=== PATIENT | male | born 1965 ===

== ENCOUNTER 2017-05-15 09:31 | Emergency (ER) | payer MEDICARE, OTHER ==
[2017-05-15 09:31] VITALS: BMI 33.4
[2017-05-15 09:44] VITALS: TEMP 97.9
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
[2017-05-15 12:44] VITALS: BP 122/79; PULSE 90; RESP 18; O2SAT 98
--- NOTE | 2017-05-17 07:09 | CARD ---
APPROVED REPORT EKG Measurement Heart [id number] <Conclusion> Normal sinus rhythm Moderate voltage criteria for LVH, may be normal variant Nonspecific T wave abnormality Abnormal ECG
== END 2017-05-15 12:44 | disposition home or self-care (01) ==
LOC: C.ER 09:31
DX: G89.21 Chronic pain due to trauma (principal)
CPT/HCPCS: 96372; 99285; J1885

== ENCOUNTER 2017-09-30 15:56 | Emergency (ER) | payer MEDICARE ==
[2017-09-30 15:57] VITALS: BMI 33.4
[2017-09-30 19:09] VITALS: BP 103/68; PULSE 64; RESP 18; TEMP 97.4; O2SAT 100
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
--- NOTE | 2017-10-01 09:10 | RAD ---
PROCEDURE: Left Knee Radiographs. HISTORY: Pain. COMPARISON: 08/27/2015 FINDINGS: BONES: Status post total knee replacement. Anatomical alignment present. Femoral and tibial components cemented no gross hardware failure suggested. . No fracture. The current replacement is different from the prior knee replacement. The current study shows interval innumerable punctate metallic densities consistent with trauma JOINTS: Knee replacement JOINT EFFUSION: suprapatellar joint effusion chronicity unknown OTHER FINDINGS: Innumerable metallic punctate densities anterior posterior soft tissue consistent with prior trauma IMPRESSION: Status post total knee replacement/revision compared to 2014 with interval innumerable metallic punctate densities consistent with interval trauma No fracture or hardware failure suggested Suprapatellar joint effusion-chronicity unknown.
--- NOTE | 2017-10-01 09:12 | RAD ---
PROCEDURE: Right Ankle Radiographs. HISTORY: fall COMPARISON: None FINDINGS: BONES: Normal. No fracture. JOINTS: Normal. No osteoarthritis. Ankle mortise maintained. Talar dome intact SOFT TISSUES: Normal. OTHER FINDINGS: None. IMPRESSION: Normal right ankle radiographs.
--- NOTE | 2017-10-01 09:14 | RAD ---
PROCEDURE: Right Foot Radiographs. HISTORY: fall COMPARISON: None. FINDINGS: BONES: Normal. No fracture. JOINTS: Minimal 1st metatarsal-phalangeal joint space narrowing. Minimal 1st metatarsal head osseous squaring. Sissoring of the 5th toe over the 4th. SOFT TISSUES: Normal. OTHER FINDINGS: None. IMPRESSION: No fracture or dislocation.
== END 2017-09-30 20:17 | disposition home or self-care (01) ==
LOC: C.ER 15:56
DX: S93.401A Sprain of unspecified ligament of right ankle, initial encounter (principal); S83.92XA Sprain of unspecified site of left knee, initial encounter; W18.30XA Fall on same level, unspecified, initial encounter

== ENCOUNTER 2018-03-17 15:01 | Emergency (ER) | payer MEDICARE ==
[2018-03-17 15:02] VITALS: BMI 33.4
[2018-03-17 15:52] VITALS: RESP 18; O2SAT 100
[2018-03-17 17:55] LABS: HEMOGLOBIN 14.5 g/dL (12.0-18.0); MEAN CELL VOLUME 97.6 fL (80.0-94.0); MEAN CORPUSCULAR HEMOGLOBIN 32.6 pg (27.0-31.0); MEAN CORPUSCULAR HGB CONC 33.4 g/dL (33.0-37.0); MEAN PLATELET VOLUME 8.6 fL (7.2-11.7); RBC 4.44 Mil/uL (4.40-5.90); RED CELL DISTRIBUTION WIDTH 13.5 % (11.5-14.5); WHITE BLOOD COUNT 8.6 K/uL (4.8-10.8)
[2018-03-17 18:13] LABS: ALB/GLOB RATIO 1.3 (1.0-2.1); ALBUMIN 4.2 g/dL (3.5-5.0); ALT/SGPT 25 U/L (21-72); AST/SGOT 28 U/L (17-59); BLOOD UREA NITROGEN 17 mg/dL (9-20); CALCIUM 9.4 mg/dl (8.6-10.4); GFR AFRICAN-AMERICAN > 60; GFR NON-AFRICAN AMERICAN > 60
--- NOTE | 2018-03-17 18:38 | C.PDOC ---
Time Seen by Provider: 03/17/18 16:00 Chief Complaint (Nursing): Dizziness/Lightheaded Past Medical History Vital Signs: Last Vital Signs Temp 98.2 F 03/17/18 15:48 Pulse 73 03/17/18 15:48 Resp 18 03/17/18 15:48 BP 147/92 H 03/17/18 15:48 Pulse Ox 100 03/17/18 15:48 - Medical History PMH: Anxiety, Asthma, Back Problems, Depression, Diabetes, Gastritis, Gastrointestinal Ulcer, HTN, Hypercholesterolemia, Hyperlipidemia, Paranoia, Post Traumatic Stress Disorder Surgical History: Appendectomy - [facility] Procedures APPLICATION OF SPLINT (08/31/13) OTHER BRONCHOSCOPY (10/20/99) Family History: States: Unknown Family Hx - Social History Hx Tobacco Use: Yes Hx Alcohol Use: No Hx Substance Use: No - Immunization History Hx Tetanus Toxoid Vaccination: No Hx Influenza Vaccination: No Hx Pneumococcal Vaccination: No ED Course And Treatment - Laboratory Results Result Diagrams: 03/17/18 17:50 03/17/18 17:50 O2 Sat by Pulse Oximetry: 100 Disposition Doctor Will See Patient In The: Office Counseled Patient/Family Regarding: Diagnosis, Need For Followup, Smoking Cessation - Disposition Disposition: HOME/ ROUTINE Disposition Time: 18:38 Condition: GOOD Additional Instructions: return if symptoms return or worsen - Clinical Impression Clinical Impression: Dizziness, Vomiting, Chronic pain
[2018-03-17 18:56] VITALS: BP 140/91; PULSE 71; TEMP 98.1
--- NOTE | 2018-03-18 14:14 | CP.PCM.CON ---
Past Patient History - Infectious Disease Hx of Infectious Diseases: None - Past Medical History & Family History Past Medical History?: Yes - Past Social History Smoking Status: Light Smoker < 10 Cigarettes Daily - CARDIAC Hx Hypercholesterolemia: Yes Hx Hypertension: Yes - PULMONARY Hx Asthma: Yes - HEENT Hx HEENT Problems: Yes Hx Glaucoma: Yes - ENDOCRINE/METABOLIC Hx Endocrine Disorders: Yes Hx Diabetes Mellitus Type 2: Yes - MUSCULOSKELETAL/RHEUMATOLOGICAL Hx Musculoskeletal Disorders: Yes - GASTROINTESTINAL Hx Gastritis: Yes - GENITOURINARY/GYNECOLOGICAL Hx Genitourinary Disorders: Yes Hx Prostate Problems: Yes (BPH) Other/Comment: FREQUENCY - PSYCHIATRIC Hx Anxiety: Yes Hx Depression: Yes Hx Paranoia: Yes Hx Post Traumatic Stress Disorder: Yes Hx Substance Use: No - SURGICAL HISTORY Hx Appendectomy: Yes - ANESTHESIA Hx Anesthesia: Yes Hx Anesthesia Reactions: No Meds Allergies/Adverse Reactions: Allergies Allergy/AdvReac Type Severity Reaction Status Date / Time carbamazepine Allergy Severe RASH Verified 03/17/18 15:42 Results - Vital Signs Recent Vital Signs: Last Vital Signs Temp 98.1 F 03/17/18 18:54 Pulse 71 03/17/18 18:54 Resp 18 03/17/18 18:54 BP 140/91 H 03/17/18 18:54 Pulse Ox 100 03/17/18 18:54 - Labs Result Diagrams: 03/17/18 17:50 03/17/18 17:50 Labs: Laboratory Results - last 24 hr 03/17/18 03/17/18 03/17/18 15:47 17:50 17:50 WBC 8.6 RBC 4.44 Hgb 14.5 Hct 43.3 MCV 97.6 H D MCH 32.6 H MCHC 33.4 RDW 13.5 Plt Count 252 MPV 8.6 Sodium 144 Potassium 4.2 Chloride 103 Carbon Dioxide 28 Anion Gap 16 BUN 17 Creatinine 0.7 L Est GFR ( Amer) > 60 Est GFR (Non-Af Amer) > 60 POC Glucose (mg/dL) 88 Random Glucose 76 Calcium 9.4 Total Bilirubin 0.4 AST 28 ALT 25 Alkaline Phosphatase 51 Total Protein 7.5 Albumin 4.2 Globulin 3.3 Albumin/Globulin Ratio 1.3
== END 2018-03-17 18:59 | disposition home or self-care (01) ==
LOC: C.ER 15:01
DX: G89.29 Other chronic pain (principal); R11.10 Vomiting, unspecified; R42 Dizziness and giddiness; F17.210 Nicotine dependence, cigarettes, uncomplicated; I10 Essential (primary) hypertension; E11.9 Type 2 diabetes mellitus without complications; E78.00 Pure hypercholesterolemia, unspecified

== ENCOUNTER 2018-07-02 15:21 | Emergency (ER) | payer MEDICARE, OTHER ==
[2018-07-02 15:21] VITALS: BMI 25.0
[2018-07-02 15:43] VITALS: BP 136/90; PULSE 88; RESP 18; O2SAT 98
[2018-07-02] MEDS ORDERED: Sodium Chloride 0.9% 1,000 ML IV ONE (15:54)
[2018-07-02] MEDS ORDERED: Sodium Chloride 0.9% 1,000 ML ONE (16:01)
--- NOTE | 2018-07-02 16:01 | C.PDOC ---
History Of Present Illness 53 y/o male presents to ED with c/o LLQ abdominal pain associated with occasional dizziness "for awhile". Patient states he has chronic pain and uses fentanyl patch. Patient denies nausea, vomiting, headache, diarrhea or any other complaints at this time. Time Seen by Provider: 07/02/18 15:50 Chief Complaint (Nursing): Abdominal Pain History Per: Patient History/Exam Limitations: no limitations Onset/Duration Of Symptoms: Days Current Symptoms Are (Timing): Still Present Location Of Pain/Discomfort: LLQ Past Medical History Reviewed: Historical Data, Nursing Documentation, Vital Signs Vital Signs: Last Vital Signs Temp 98.5 F 07/02/18 15:39 Pulse 88 07/02/18 15:39 Resp 18 07/02/18 15:39 BP 136/90 07/02/18 15:39 Pulse Ox 98 07/02/18 18:19 - Medical History PMH: Anxiety, Asthma, Back Problems, Depression, Diabetes, Gastritis, Gastrointestinal Ulcer, HTN, Hypercholesterolemia, Hyperlipidemia, Paranoia, Post Traumatic Stress Disorder Surgical History: Appendectomy - [facility] Procedures APPLICATION OF SPLINT (08/31/13) OTHER BRONCHOSCOPY (10/20/99) Family History: States: No Known Family Hx - Social History Hx Tobacco Use: Yes Hx Alcohol Use: No Hx Substance Use: No - Immunization History Hx Tetanus Toxoid Vaccination: No Hx Influenza Vaccination: No Hx Pneumococcal Vaccination: No Review Of Systems Constitutional: Negative for: Fever, Chills Gastrointestinal: Positive for: Abdominal Pain. Negative for: Nausea, Vomiting , Diarrhea Skin: Negative for: Rash Physical Exam - Physical Exam Appears: Non-toxic, No Acute Distress Skin: Warm, Dry, No Rash Head: Atraumatic, Normacephalic Eye(s): bilateral: Normal Inspection Oral Mucosa: Moist Cardiovascular: Rhythm Regular Respiratory: Normal Breath Sounds, No Rales, No Rhonchi, No Wheezing Gastrointestinal/Abdominal: Soft, Tenderness (LLQ), No Guarding, No Rebound Back: No CVA Tenderness Extremity: Normal ROM, Capillary Refill (<2 seconds) Neurological/Psych: Oriented x3, Normal Speech, Normal Cognition ED Course And Treatment - Laboratory Results Result Diagrams: 07/02/18 16:14 07/02/18 16:14 Lab Interpretation: Normal O2 Sat by Pulse Oximetry: 98 (RA) Pulse Ox Interpretation: Normal - CT Scan/US No standard instances Other Rad Studies (CT/US): Read By Radiologist, Radiology Report Reviewed CT/US Interpretation: FINDINGS: There is limited evaluation of the solid organs without the administration of IV contrast. LOWER THORAX: No visible consolidation, pleural effusion, or pneumothorax. LIVER: Unremarkable unenhanced appearance. GALLBLADDER AND BILE DUCTS: Unremarkable unenhanced appearance. PANCREAS: Unremarkable unenhanced appearance. SPLEEN: Unremarkable unenhanced appearance. ADRENALS: Unremarkable unenhanced appearance. KIDNEYS AND URETERS: No hydronephrosis or obstructing renal calculus. BLADDER: Evidence of posterior right bladder diverticulum. REPRODUCTIVE: Enlarged prostate gland containing calcifications. APPENDIX: The appendix is not identified. No secondary signs of acute appendicitis. BOWEL : The stomach is nondistended. Lack of oral contrast limits evaluation for bowel pathology. The bowel loops appear within normal limits of caliber without evidence of intestinal obstruction. Moderate diffuse constipation. PERITONEUM: No significant free fluid. No definite free air. LYMPH NODES: No bulky lymphadenopathy identified. VASCULATURE: No aortic aneurysm. BONES: Degenerative changes. Patchy sclerosis involving bilateral femoral heads. Grade 1 anterolisthesis of L4 on L5. OTHER FINDINGS: None. IMPRESSION: Enlarged prostate gland containing calcifications ; recommend correlation with PSA. Moderate diffuse constipation. Posterior right urinary bladder diverticulum. Progress Note: Blood work, UA ordered. Toradol, Zofran and IV fluids administered. On re-evaluation abdomen soft non-tender, in no distress Reassessment Condition: Improved Disposition Counseled Patient/Family Regarding: Studies Performed, Diagnosis, Need For Followup, Rx Given - Disposition Referrals: [facility] [Outside] [facility] [Outside] Disposition: HOME/ ROUTINE Disposition Time: 18:20 Condition: STABLE Prescriptions: Polyethylene Glycol 3350 [Miralax] 17 gm PO DAILY PRN #20 packet PRN Reason: Constipation Instructions: Acute Abdomen (Belly Pain) Forms: [email or web address] (Occitan) - POA Present On Arrival: None - Clinical Impression Clinical Impression: Abdominal pain - PA / GRAPE CUTTER / Resident Statement MD/DO has reviewed & agrees with the documentation as recorded. - Scribe Statement The provider has reviewed the documentation as recorded by the Radha Cadet All medical record entries made by the Vishalibadele were at my direction and personally dictated by me. I have reviewed the chart and agree that the record accurately reflects my personal performance of the history, physical exam, medical decision making, and the department course for this patient. I have also personally directed, reviewed, and agree with the discharge instructions and disposition.
[2018-07-02 16:19] LABS: BASO % 0.8 % (0.0-2.0); EOS # 0.1 K/uL (0.0-0.7); EOS % 1.5 % (0.0-4.0); HEMOGLOBIN 14.1 g/dL (12.0-18.0); LYMPH % 31.7 % (20.0-40.0); MEAN CELL VOLUME 94.9 fL (80.0-94.0); MEAN CORPUSCULAR HEMOGLOBIN 32.6 pg (27.0-31.0); MEAN CORPUSCULAR HGB CONC 34.3 g/dL (33.0-37.0); MONO # 0.4 K/uL (0.0-0.8); MONO % 6.1 % (0.0-10.0); NEUT # 3.8 K/uL (1.8-7.0); NEUT % 59.9 % (50.0-75.0); NRBC % 0.1 % (0.0-2.0); RBC 4.34 Mil/uL (4.40-5.90); WHITE BLOOD COUNT 6.3 K/uL (4.8-10.8)
[2018-07-02 16:33] LABS: ALB/GLOB RATIO 1.5 (1.0-2.1); ALBUMIN 3.9 g/dL (3.5-5.0); ALT/SGPT 31 U/L (21-72); AST/SGOT 20 U/L (17-59); BLOOD UREA NITROGEN 15 mg/dL (9-20); CALCIUM 9.5 mg/dl (8.6-10.4); GFR NON-AFRICAN AMERICAN > 60; LIPASE 69 U/L (23-300)
[2018-07-02 16:54] LABS: URINE BILIRUBIN NEGATIVE (NEGATIVE); URINE BLOOD NEGATIVE (NEGATIVE); URINE CLARITY Clear (Clear); URINE GLUCOSE (UA) NORMAL (Normal); URINE LEUKOCYTE ESTERASE NEG Leu/uL (Negative); URINE PROTEIN NEGATIVE (NEGATIVE); URINE UROBILINOGEN NORMAL mg/dL (0.2-1.0)
[2018-07-02 17:01] LABS: URINE COLOR YELLOW (YELLOW)
--- NOTE | 2018-07-02 18:17 | CT ---
PROCEDURE: CT Abdomen and Pelvis without Oral or IV contrast. HISTORY: Pain COMPARISON: CT abdomen and pelvis without IV contrast performed 03/24/18 TECHNIQUE: Contiguous axial images of the abdomen and pelvis. No oral or IV contrast administered. Coronal and Sagittal reformats generated and reviewed. Radiation dose: Total exam DLP = 369.63 mGy-cm. This CT exam was performed using one or more of the following dose reduction techniques: Automated exposure control, adjustment of the mA and/or kV according to patient size, and/or use of iterative reconstruction technique. FINDINGS: There is limited evaluation of the solid organs without the administration of IV contrast. LOWER THORAX: No visible consolidation, pleural effusion, or pneumothorax. LIVER: Unremarkable unenhanced appearance. GALLBLADDER AND BILE DUCTS: Unremarkable unenhanced appearance. PANCREAS: Unremarkable unenhanced appearance. SPLEEN: Unremarkable unenhanced appearance. ADRENALS: Unremarkable unenhanced appearance. KIDNEYS AND URETERS: No hydronephrosis or obstructing renal calculus. BLADDER: Evidence of posterior right bladder diverticulum. REPRODUCTIVE: Enlarged prostate gland containing calcifications. APPENDIX: The appendix is not identified. No secondary signs of acute appendicitis. BOWEL: The stomach is nondistended. Lack of oral contrast limits evaluation for bowel pathology. The bowel loops appear within normal limits of caliber without evidence of intestinal obstruction. Moderate diffuse constipation. PERITONEUM: No significant free fluid. No definite free air. LYMPH NODES: No bulky lymphadenopathy identified. VASCULATURE: No aortic aneurysm. BONES: Degenerative changes. Patchy sclerosis involving bilateral femoral heads. Grade 1 anterolisthesis of L4 on L5. OTHER FINDINGS: None. IMPRESSION: Enlarged prostate gland containing calcifications ; recommend correlation with PSA. Moderate diffuse constipation. Posterior right urinary bladder diverticulum. Additional findings as above.
[2018-07-02 18:47] VITALS: TEMP 98
== END 2018-07-02 18:47 | disposition home or self-care (01) ==
LOC: C.ER 15:21
DX: R10.32 Left lower quadrant pain (principal)
CPT/HCPCS: 74176; 80053; 81001; 83690; 85025; 96361; 96374; 96375; 99284; J1885; J2405; J7030

== ENCOUNTER 2018-07-08 23:51 | Inpatient (IN) | payer MEDICARE ==
[2018-07-08 23:52] VITALS: BMI 25.0
[2018-07-09] MEDS ORDERED: Sodium Chloride 0.9% 1,000 ML IV ONE ×2 (00:10→00:11)
--- NOTE | 2018-07-09 00:14 | C.PDOC ---
History Of Present Illness 53 year old male presents to the ED c/o abdominal pain associated with nausea and vomiting for the past 1 week. Patient states pain worsened tonight and is mostly located in the left side of his abdomen. Patient denies fever, chills, diarrhea, dysuria, hematuria, back pain. Chief Complaint (Nursing): Abdominal Pain History Per: Patient History/Exam Limitations: no limitations Onset/Duration Of Symptoms: Days Current Symptoms Are (Timing): Still Present Severity: Moderate Location Of Pain/Discomfort: LUQ, LLQ Radiation Of Pain To:: None Quality Of Discomfort: "Pain" Associated Symptoms: Nausea, Vomiting. denies: Diarrhea, Urinary Symptoms Alleviating Factors: None Recent travel outside of the [place]: No Additional History Per: Patient Past Medical History Reviewed: Historical Data, Nursing Documentation, Vital Signs Vital Signs: Last Vital Signs Temp 97.8 F 07/08/18 23:59 Pulse 90 07/08/18 23:59 Resp 16 07/08/18 23:59 BP 149/93 H 07/08/18 23:59 Pulse Ox 100 07/09/18 04:05 - Medical History PMH: Anxiety, Asthma, Back Problems, Depression, Diabetes, Gastritis, Gastrointestinal Ulcer, HTN, Hypercholesterolemia, Hyperlipidemia, Paranoia, Post Traumatic Stress Disorder Surgical History: Appendectomy - [facility] Procedures APPLICATION OF SPLINT (08/31/13) OTHER BRONCHOSCOPY (10/20/99) Family History: States: Unknown Family Hx - Social History Hx Tobacco Use: Yes Hx Alcohol Use: No Hx Substance Use: No - Immunization History Hx Tetanus Toxoid Vaccination: No Hx Influenza Vaccination: No Hx Pneumococcal Vaccination: No Review Of Systems Constitutional: Negative for: Fever, Chills Cardiovascular: Negative for: Chest Pain Respiratory: Negative for: Shortness of Breath Gastrointestinal: Positive for: Nausea, Vomiting, Abdominal Pain Genitourinary: Negative for: Dysuria, Hematuria Skin: Negative for: Rash Physical Exam - Physical Exam Appears: Non-toxic, In Acute Distress Skin: Normal Color, Warm, Dry Head: Atraumatic, Normacephalic Eye(s): bilateral: Normal Inspection Oral Mucosa: Moist Neck: Normal ROM, Supple Chest: Symmetrical Cardiovascular: Rhythm Regular Respiratory: Normal Breath Sounds, No Rales, No Rhonchi, No Wheezing Gastrointestinal/Abdominal: Soft, Tenderness (left sided abdomen ), No Guarding , No Rebound Back: No CVA Tenderness Extremity: Normal ROM, No Tenderness, No Swelling Neurological/Psych: Oriented x3, Normal Speech Gait: Steady ED Course And Treatment - Laboratory Results Result Diagrams: 07/09/18 00:23 07/09/18 00:23 O2 Sat by Pulse Oximetry: 100 (ON RA) Pulse Ox Interpretation: Normal Medical Decision Making Medical Decision Making: Plan: * Labs * IV fluids * Toradol 30 mg IVP * Zofran 4 mg IVP * UA Disposition Discussed With : Bea Rothman Doctor Will See Patient In The: Hospital Counseled Patient/Family Regarding: Diagnosis - Disposition Disposition: HOSPITALIZED Disposition Time: 04:16 Condition: STABLE Forms: [facility] (Japanese) - POA Present On Arrival: None - Clinical Impression Clinical Impression: Abdominal pain, Small bowel obstruction - Scribe Statement The provider has reviewed the documentation as recorded by the Scribe Constantine Robles All medical record entries made by the Scribe were at my direction and personally dictated by me. I have reviewed the chart and agree that the record accurately reflects my personal performance of the history, physical exam, medical decision making, and the department course for this patient. I have also personally directed, reviewed, and agree with the discharge instructions and disposition.
[2018-07-09 00:31] LABS: BASO # 0.1 K/uL (0.0-0.2); BASO % 0.8 % (0.0-2.0); EOS # 0.2 K/uL (0.0-0.7); EOS % 1.4 % (0.0-4.0); HEMOGLOBIN 14.6 g/dL (12.0-18.0); LYMPH # 4.6 K/uL (1.0-4.3); LYMPH % 35.2 % (20.0-40.0); MEAN CELL VOLUME 94.8 fL (80.0-94.0); MEAN CORPUSCULAR HEMOGLOBIN 32.7 pg (27.0-31.0); MEAN CORPUSCULAR HGB CONC 34.5 g/dL (33.0-37.0); MEAN PLATELET VOLUME 7.7 fL (7.2-11.7); MONO # 0.8 K/uL (0.0-0.8); MONO % 6.3 % (0.0-10.0); NEUT # 7.3 K/uL (1.8-7.0); NEUT % 56.3 % (50.0-75.0); RBC 4.45 Mil/uL (4.40-5.90); RED CELL DISTRIBUTION WIDTH 13.1 % (11.5-14.5); WHITE BLOOD COUNT 12.9 K/uL (4.8-10.8)
[2018-07-09] MEDS ORDERED: Iodixanol 320 mg/ml 150 ml Bottle IV ONE (00:38)
[2018-07-09 01:14] LABS: ALB/GLOB RATIO 1.7 (1.0-2.1); ALBUMIN 4.4 g/dL (3.5-5.0); ALT/SGPT 27 U/L (21-72); AST/SGOT 21 U/L (17-59); BLOOD UREA NITROGEN 21 mg/dL (9-20); CALCIUM 10.1 mg/dl (8.6-10.4); GFR NON-AFRICAN AMERICAN > 60; LIPASE 58 U/L (23-300)
[2018-07-09 05:19] LABS: URINE AMORPHOUS SEDIMENT RARE /ul (<OCC); URINE BACTERIA RARE (<OCC); URINE BILIRUBIN NEGATIVE (NEGATIVE); URINE BLOOD NEGATIVE (NEGATIVE); URINE CLARITY Hazy (Clear); URINE COLOR Yellow (YELLOW); URINE GLUCOSE (UA) NORMAL (Normal); URINE LEUKOCYTE ESTERASE NEG Leu/uL (Negative); URINE PROTEIN NEGATIVE (NEGATIVE); URINE UROBILINOGEN NORMAL mg/dL (0.2-1.0)
[2018-07-09] MEDS ORDERED: Sodium Chloride 0.9% 1,000 ML IV SCH (05:30)
[2018-07-09] MEDS: Albuterol-Ipratrop 3 mg / 0.5 (3 ml) UD INH PRN ×2 (07:30→12:51)
--- NOTE | 2018-07-09 08:27 | CT ---
Date of service: 07/09/2018 PROCEDURE: CT Abdomen and Pelvis without intravenous contrast HISTORY: Left-sided abdominal pain COMPARISON: CT abdomen and pelvis dated 01/26/2016 TECHNIQUE: Multiple contiguous axial images were performed through the abdomen and pelvis with the use of intravenous contrast. Subsequently, sagittal and coronal reformatted images were obtained. Radiation dose: Total exam DLP = 392 mGy-cm. This CT exam was performed using one or more of the following dose reduction techniques: Automated exposure control, adjustment of the mA and/or kV according to patient size, and/or use of iterative reconstruction technique. FINDINGS: LOWER THORAX: Unremarkable. LIVER: Unremarkable. No gross lesion or ductal dilatation. GALLBLADDER AND BILE DUCTS: Unremarkable. PANCREAS: Unremarkable. No gross lesion or ductal dilatation. SPLEEN: Unremarkable. ADRENALS: Unremarkable. No mass. KIDNEYS AND URETERS: Unremarkable. No hydronephrosis. No solid mass. VASCULATURE: Unremarkable. No aortic aneurysm. BOWEL: Prominently dilated small bowel loops throughout the upper and mid abdomen. There is a suggestion of a possible transition point on the coronal images 37-39. These findings may represent high-grade small-bowel obstruction and or high grade partial small bowel obstruction. Clinical correlation. Moderate stool throughout the colon suggesting constipation. APPENDIX: Appendix not well identified. PERITONEUM: Unremarkable. No free fluid. No free air. LYMPH NODES: Unremarkable. No enlarged lymph nodes. BLADDER: Unremarkable. REPRODUCTIVE: Prominent prostate with associated calcification. Clinical correlation. BONES: Degenerative changes in the spine. Mild anterolisthesis of L4 on L5. Patchy areas of ill-defined sclerosis seen within the bilateral femoral heads; left greater than right concerning for underlying avascular necrosis. Clinical correlation. OTHER FINDINGS: None. IMPRESSION: Prominently dilated small bowel loops throughout the upper and mid abdomen. There is a suggestion of a possible transition point on the coronal images 37-39. These findings may represent high-grade small-bowel obstruction and or high grade partial small bowel obstruction. Clinical correlation. Moderate stool throughout the colon suggesting constipation. Appendix not well identified. Prominent prostate with associated calcification. Clinical correlation. Degenerative changes in the spine. Mild anterolisthesis of L4 on L5. Patchy areas of ill-defined sclerosis seen within the bilateral femoral heads; left greater than right concerning for underlying avascular necrosis. Clinical correlation. These findings were preliminarily reported at 4:03 a.m. on 07/09/[address] Osmani Salazar from [employer].
--- NOTE | 2018-07-09 08:41 | CP.PCM.CON ---
History of Present Illness - History of Present Illness History of Present Illness: GENERAL SURGERY CONSULT NOTE FOR DR. EWING 53 yo M with PMHx of DM, HTN, anxiety, depression, bipolar, PTSD, multiple suicide attempts, chronic constipation, chronic pain on opioids presented to the ED with abdominal pain and vomiting. The pain began yesterday around 6:30PM and was located in the left abdomen. He vomited about 6 times including in the ED and on the floor and per the nurse and patient, it was mostly undigested food. Last BM 2 days ago, passed flatus this AM. PMHx: DM, HTN, anxiety, depression, bipolar, PTSD, multiple suicide attempts, chronic constipation, chronic bilateral knee and back pain on fentanyl patch and opioids Surgeries: appy, numerous bilateral knee surgeries Allergies: carbamazepine Social history: formerly incarcerated, former opioid abuse Past Patient History - Infectious Disease Hx of Infectious Diseases: None - Past Medical History & Family History Past Medical History?: Yes - Past Social History Smoking Status: Light Smoker < 10 Cigarettes Daily - CARDIAC Hx Cardiac Disorders: Yes Hx Hypercholesterolemia: Yes Hx Hypertension: Yes - PULMONARY Hx Respiratory Disorders: Yes Hx Asthma: Yes - NEUROLOGICAL Hx Neurological Disorder: No - HEENT Hx HEENT Problems: Yes Hx Glaucoma: Yes - RENAL Hx Chronic Kidney Disease: No - ENDOCRINE/METABOLIC Hx Endocrine Disorders: Yes Hx Diabetes Mellitus Type 2: Yes - HEMATOLOGICAL/ONCOLOGICAL Hx Blood Disorders: No - INTEGUMENTARY Hx Dermatological Problems: No - MUSCULOSKELETAL/RHEUMATOLOGICAL Hx Musculoskeletal Disorders: Yes Hx Falls: No - GASTROINTESTINAL Hx Gastrointestinal Disorders: Yes Hx Gastritis: Yes - GENITOURINARY/GYNECOLOGICAL Hx Genitourinary Disorders: Yes Hx Prostate Problems: No Other/Comment: FREQUENCY - PSYCHIATRIC Hx Psychophysiologic Disorder: Yes Hx Anxiety: Yes Hx Depression: Yes Hx Paranoia: Yes Hx Post Traumatic Stress Disorder: Yes Hx Substance Use: No - SURGICAL HISTORY Hx Surgeries: Yes Hx Appendectomy: Yes Other/Comment: left total knee replacement - ANESTHESIA Hx Anesthesia: Yes Hx Anesthesia Reactions: No Hx Malignant Hyperthermia: No Has any member of the family had a problem w/ anesthesia?: Yes (sister) Meds Allergies/Adverse Reactions: Allergies Allergy/AdvReac Type Severity Reaction Status Date / Time carbamazepine Allergy Severe RASH Verified 07/09/18 00:02 - Medications Medications: Current Medications Albuterol/Ipratropium (Duoneb 3 Mg/0.5 Mg (3 Ml) Ud) 3 ml INH RQ6 PRN PRN Reason: Shortness of Breath Sodium Chloride (Sodium Chloride 0.9%) 1,000 mls @ 100 mls/hr IV .Q10H ONE Stop: 07/09/18 10:09 Last Admin: 07/09/18 06:30 Dose: Not Given Sodium Chloride (Sodium Chloride 0.9%) 1,000 mls @ 70 mls/hr IV .[id number] [facility] Last Admin: 07/09/18 06:07 Dose: 70 mls/hr Ketorolac Tromethamine (Toradol) 15 mg IVP Q6 PRN PRN Reason: pain Last Admin: 07/09/18 06:31 Dose: 15 mg Pantoprazole Sodium (Protonix Inj) 40 mg IVP DAILY [facility] Pneumococcal Polyvalent Vaccine (Pneumovax 23 Vaccine) 0.5 ml IM .ONCE ONE Stop: 07/11/18 14:01 Physical Exam - Constitutional Appears: Non-toxic, No Acute Distress - Head Exam Head Exam: ATRAUMATIC, NORMAL INSPECTION - Eye Exam Eye Exam: EOMI, Normal appearance - ENT Exam ENT Exam: Mucous Membranes Moist - Respiratory Exam Respiratory Exam: NORMAL BREATHING PATTERN. absent: Respiratory Distress - Cardiovascular Exam Cardiovascular Exam: +S1, +S2 - GI/Abdominal Exam GI & Abdominal Exam: Soft, Tenderness (mild tenderness LUQ). absent: Distended , Firm, Guarding, Rebound, Rigid - Neurological Exam Neurological exam: Alert, CN II-XII Intact, Oriented x3 - Psychiatric Exam Psychiatric exam: Normal Affect, Normal Mood - Skin Skin Exam: Dry, Normal Color, Warm Results - Vital Signs Recent Vital Signs: Last Vital Signs Temp 98.2 F 07/09/18 07:00 Pulse 96 H 07/09/18 07:00 Resp 20 07/09/18 07:00 BP 129/84 07/09/18 07:00 Pulse Ox 97 07/09/18 07:00 - Labs Result Diagrams: 07/10/18 07:31 07/10/18 07:31 Labs: Laboratory Results - last 24 hr 07/09/18 07/09/18 07/09/18 00:12 00:23 00:23 WBC 12.9 H D RBC 4.45 Hgb 14.6 Hct 42.2 MCV 94.8 H MCH 32.7 H MCHC 34.5 RDW 13.1 Plt Count 228 MPV 7.7 Neut % (Auto) 56.3 Lymph % (Auto) 35.2 [place] % (Auto) 6.3 Eos % (Auto) 1.4 Baso % (Auto) 0.8 Neut # (Auto) 7.3 H Lymph # (Auto) 4.6 H [place] # (Auto) 0.8 Eos # (Auto) 0.2 Baso # (Auto) 0.1 Sodium 143 Potassium 3.8 Chloride 106 Carbon Dioxide 22 Anion Gap 18 BUN 21 H Creatinine 0.8 Est GFR ( Amer) > 60 Est GFR (Non-Af Amer) > 60 POC Glucose (mg/dL) 111 H Random Glucose 118 H Calcium 10.1 Total Bilirubin 0.5 AST 21 ALT 27 Alkaline Phosphatase 52 Total Protein 6.9 Albumin 4.4 Globulin 2.5 Albumin/Globulin Ratio 1.7 Lipase 58 Urine Color Urine Clarity Urine pH Ur Specific [place] Urine Protein Urine Glucose (UA) Urine Ketones Urine Blood Urine Nitrate Urine Bilirubin Urine Urobilinogen Ur Leukocyte Esterase Urine WBC (Auto) Urine RBC (Auto) Amorphous Sediment Urine Bacteria B-Hydroxybutyrate 0.11 07/09/18 05:10 WBC RBC Hgb Hct MCV MCH MCHC RDW Plt Count MPV Neut % (Auto) Lymph % (Auto) [place] % (Auto) Eos % (Auto) Baso % (Auto) Neut # (Auto) Lymph # (Auto) [place] # (Auto) Eos # (Auto) Baso # (Auto) Sodium Potassium Chloride Carbon Dioxide Anion Gap BUN Creatinine Est GFR ( Amer) Est GFR (Non-Af Amer) POC Glucose (mg/dL) Random Glucose Calcium Total Bilirubin AST ALT Alkaline Phosphatase Total Protein Albumin Globulin Albumin/Globulin Ratio Lipase Urine Color Yellow Urine Clarity Hazy Urine pH 8.0 Ur Specific [place] 1.048 H Urine Protein Negative Urine Glucose (UA) Normal Urine Ketones Negative Urine Blood Negative Urine Nitrate Negative Urine Bilirubin Negative Urine Urobilinogen Normal Ur Leukocyte Esterase Neg Urine WBC (Auto) 6 H Urine RBC (Auto) 13 H Amorphous Sediment Rare H Urine Bacteria Rare B-Hydroxybutyrate Assessment & Plan - Assessment and Plan (Free Text) Assessment: 53 yo M with PMHx of DM, HTN, anxiety, depression, bipolar, PTSD, multiple suicide attempts, chronic constipation, chronic pain on opioids now with SBO - Afebrile, VSS - CT: Prominently dilated small bowel loops throughout the upper and mid abdomen. There is a suggestion of a possible transition point. These findings may represent high-grade small-bowel obstruction and or high grade partial small bowel obstruction. Moderate stool throughout the colon suggesting constipation. - NG tube placed with 100cc output, patient also vomited ~300cc during NG insertion - NG tube placement confirmed by CXR - NPO - IV fluids - Enema - Zofran, pain medication PRN - Discussed plan with Dr. Ray Zavala PGY-4
--- NOTE | 2018-07-09 09:19 | RAD ---
Date of service: 07/09/2018 HISTORY: Nasogastric tube placement COMPARISON: Chest radiographs 08/09/2016. FINDINGS: LUNGS: A nasogastric tube is in place with tip terminating at the left upper quadrant abdomen. PLEURA: No significant pleural effusion identified, no pneumothorax apparent. CARDIOVASCULAR: Normal. OSSEOUS STRUCTURES: No significant abnormalities. VISUALIZED UPPER ABDOMEN: Unremarkable . OTHER FINDINGS: None. IMPRESSION: Interval nasogastric tube placement in good apparent position. No acute cardiopulmonary disease identified in the interval.
--- NOTE | 2018-07-09 18:28 | CP.PCM.HP ---
Past Patient History - Infectious Disease Hx of Infectious Diseases: None - Past Medical History & Family History Past Medical History?: Yes - Past Social History Smoking Status: Light Smoker < 10 Cigarettes Daily - CARDIAC Hx Cardiac Disorders: Yes Hx Hypercholesterolemia: Yes Hx Hypertension: Yes - PULMONARY Hx Respiratory Disorders: Yes Hx Asthma: Yes - NEUROLOGICAL Hx Neurological Disorder: No - HEENT Hx HEENT Problems: Yes Hx Glaucoma: Yes - RENAL Hx Chronic Kidney Disease: No - ENDOCRINE/METABOLIC Hx Diabetes Mellitus Type 2: Yes - HEMATOLOGICAL/ONCOLOGICAL Hx Blood Disorders: No - INTEGUMENTARY Hx Dermatological Problems: No - MUSCULOSKELETAL/RHEUMATOLOGICAL Hx Musculoskeletal Disorders: Yes Hx Falls: No - GASTROINTESTINAL Hx Gastrointestinal Disorders: Yes Hx Gastritis: Yes - GENITOURINARY/GYNECOLOGICAL Hx Genitourinary Disorders: Yes Hx Prostate Problems: No Other/Comment: FREQUENCY - PSYCHIATRIC Hx Psychophysiologic Disorder: Yes Hx Anxiety: Yes Hx Depression: Yes Hx Paranoia: Yes Hx Post Traumatic Stress Disorder: Yes Hx Substance Use: No - SURGICAL HISTORY Hx Surgeries: Yes Hx Appendectomy: Yes Other/Comment: left total knee replacement - ANESTHESIA Hx Anesthesia: Yes Hx Anesthesia Reactions: No Hx Malignant Hyperthermia: No Has any member of the family had a problem w/ anesthesia?: Yes (sister) Meds Allergies/Adverse Reactions: Allergies Allergy/AdvReac Type Severity Reaction Status Date / Time carbamazepine Allergy Severe RASH Verified 07/09/18 00:02 Results - Vital Signs Recent Vital Signs: Last Vital Signs Temp 98.2 F 07/09/18 15:00 Pulse 74 07/09/18 15:00 Resp 20 07/09/18 15:00 BP 146/83 07/09/18 15:00 Pulse Ox 98 07/09/18 15:00 - Labs Result Diagrams: 07/09/18 00:23 07/09/18 00:23 Labs: Laboratory Results - last 24 hr 07/09/18 07/09/18 07/09/18 00:12 00:23 00:23 WBC 12.9 H D RBC 4.45 Hgb 14.6 Hct 42.2 MCV 94.8 H MCH 32.7 H MCHC 34.5 RDW 13.1 Plt Count 228 MPV 7.7 Neut % (Auto) 56.3 Lymph % (Auto) 35.2 [place] % (Auto) 6.3 Eos % (Auto) 1.4 Baso % (Auto) 0.8 Neut # (Auto) 7.3 H Lymph # (Auto) 4.6 H [place] # (Auto) 0.8 Eos # (Auto) 0.2 Baso # (Auto) 0.1 Sodium 143 Potassium 3.8 Chloride 106 Carbon Dioxide 22 Anion Gap 18 BUN 21 H Creatinine 0.8 Est GFR ( Amer) > 60 Est GFR (Non-Af Amer) > 60 POC Glucose (mg/dL) 111 H Random Glucose 118 H Calcium 10.1 Total Bilirubin 0.5 AST 21 ALT 27 Alkaline Phosphatase 52 Total Protein 6.9 Albumin 4.4 Globulin 2.5 Albumin/Globulin Ratio 1.7 Lipase 58 Urine Color Urine Clarity Urine pH Ur Specific [place] Urine Protein Urine Glucose (UA) Urine Ketones Urine Blood Urine Nitrate Urine Bilirubin Urine Urobilinogen Ur Leukocyte Esterase Urine WBC (Auto) Urine RBC (Auto) Amorphous Sediment Urine Bacteria B-Hydroxybutyrate 0.11 07/09/18 07/09/18 07/09/18 05:10 11:17 17:26 WBC RBC Hgb Hct MCV MCH MCHC RDW Plt Count MPV Neut % (Auto) Lymph % (Auto) [place] % (Auto) Eos % (Auto) Baso % (Auto) Neut # (Auto) Lymph # (Auto) [place] # (Auto) Eos # (Auto) Baso # (Auto) Sodium Potassium Chloride Carbon Dioxide Anion Gap BUN Creatinine Est GFR ( Amer) Est GFR (Non-Af Amer) POC Glucose (mg/dL) 92 94 Random Glucose Calcium Total Bilirubin AST ALT Alkaline Phosphatase Total Protein Albumin Globulin Albumin/Globulin Ratio Lipase Urine Color Yellow Urine Clarity Hazy Urine pH 8.0 Ur Specific [place] 1.048 H Urine Protein Negative Urine Glucose (UA) Normal Urine Ketones Negative Urine Blood Negative Urine Nitrate Negative Urine Bilirubin Negative Urine Urobilinogen Normal Ur Leukocyte Esterase Neg Urine WBC (Auto) 6 H Urine RBC (Auto) 13 H Amorphous Sediment Rare H Urine Bacteria Rare B-Hydroxybutyrate
[2018-07-09] MEDS: Potassium Chl 40 mEq in D5-1/2 1,000 ML IV SCH (20:00)
[2018-07-09] MEDS ORDERED: Mineral Oil Enema 135 ml RC ONE (22:00)
[2018-07-10] MEDS: Potassium Chl 40 mEq in D5-1/2 1,000 ML IV SCH ×5 (06:48→22:09)
[2018-07-10] MEDS: Albuterol-Ipratrop 3 mg / 0.5 (3 ml) UD INH PRN ×2 (07:23→12:57)
[2018-07-10 07:38] LABS: BASO % 0.3 % (0.0-2.0); EOS # 0.1 K/uL (0.0-0.7); EOS % 0.9 % (0.0-4.0); HEMOGLOBIN 14.1 g/dL (12.0-18.0); LYMPH # 2.3 K/uL (1.0-4.3); LYMPH % 30.3 % (20.0-40.0); MEAN CELL VOLUME 95.7 fL (80.0-94.0); MEAN CORPUSCULAR HEMOGLOBIN 33.2 pg (27.0-31.0); MEAN CORPUSCULAR HGB CONC 34.7 g/dL (33.0-37.0); MEAN PLATELET VOLUME 7.6 fL (7.2-11.7); MONO # 0.5 K/uL (0.0-0.8); NEUT # 4.7 K/uL (1.8-7.0); NEUT % 61.5 % (50.0-75.0); NRBC % 0.1 % (0.0-2.0); RBC 4.24 Mil/uL (4.40-5.90); RED CELL DISTRIBUTION WIDTH 13.1 % (11.5-14.5); WHITE BLOOD COUNT 7.6 K/uL (4.8-10.8)
[2018-07-10 07:55] LABS: ALB/GLOB RATIO 1.4 (1.0-2.1); ALBUMIN 3.8 g/dL (3.5-5.0); ALT/SGPT 48 U/L (21-72); AST/SGOT 30 U/L (17-59); BLOOD UREA NITROGEN 17 mg/dL (9-20); CALCIUM 9.2 mg/dl (8.6-10.4); GFR NON-AFRICAN AMERICAN > 60
--- NOTE | 2018-07-10 08:44 | CP.PCM.PN ---
Subjective - Date & Time of Evaluation Date of Evaluation: 07/10/18 Time of Evaluation: 07:00 - Subjective Subjective: GENERAL SURGERY PROGRESS NOTE FOR DR. EWING Patient seen and examined at bedside. Pt pulled out his NG tube yesterday evening. Denies nausea or vomiting. Had enema last night and had watery BM. Had another formed soft BM this AM. Denies abdominal pain. Objective - Vital Signs/Intake and Output Vital Signs (last 24 hours): Temp Pulse Resp BP Pulse Ox 98.3 F 74 20 129/83 99 07/10/18 03:30 07/10/18 03:30 07/10/18 03:30 07/10/18 03:30 07/10/18 03:30 Intake and Output: 07/10/18 07/10/18 06:59 18:59 Intake Total 1720 Output Total 1500 Balance 220 - Medications Medications: Current Medications Albuterol/Ipratropium (Duoneb 3 Mg/0.5 Mg (3 Ml) Ud) 3 ml INH RQ6 PRN PRN Reason: Shortness of Breath Last Admin: 07/10/18 07:23 Dose: 3 ml Aspirin (Aspirin Supp) 300 mg IA DAILY [facility] Potassium Chloride/Dextrose/Sod Cl (Potassium Chl 40 Meq In D5-1/2ns) 1,000 mls @ 125 mls/hr IV .Q8H [facility] Last Admin: 07/10/18 06:48 Dose: 125 mls/hr Ketorolac Tromethamine (Toradol) 15 mg IVP Q6 PRN PRN Reason: pain Last Admin: 07/10/18 03:35 Dose: 15 mg Lorazepam (Ativan) 0.5 mg IVP Q6H PRN PRN Reason: Anxiety Last Admin: 07/09/18 20:40 Dose: 0.5 mg Ondansetron HCl (Zofran Inj) 4 mg IVP Q4 PRN PRN Reason: Nausea/Vomiting Last Admin: 07/09/18 13:39 Dose: 4 mg Pantoprazole Sodium (Protonix Inj) 40 mg IVP DAILY [facility] Last Admin: 07/09/18 09:52 Dose: 40 mg Pneumococcal Polyvalent Vaccine (Pneumovax 23 Vaccine) 0.5 ml IM .ONCE ONE Stop: 07/11/18 14:01 - Labs Labs: 07/10/18 07:31 07/10/18 07:31 - Constitutional Appears: Non-toxic, No Acute Distress - Head Exam Head Exam: ATRAUMATIC, NORMAL INSPECTION - Respiratory Exam Respiratory Exam: NORMAL BREATHING PATTERN. absent: Respiratory Distress - Cardiovascular Exam Cardiovascular Exam: +S1, +S2 - GI/Abdominal Exam GI & Abdominal Exam: Soft. absent: Distended, Firm, Guarding, Rigid, Tenderness , Rebound - Neurological Exam Neurological Exam: Alert, Awake, Oriented x3 - Psychiatric Exam Psychiatric exam: Normal Affect, Normal Mood - Skin Skin Exam: Dry, Normal Color, Warm Assessment and Plan - Assessment and Plan (Free Text) Assessment: 53 yo M with PMHx of DM, HTN, anxiety, depression, bipolar, PTSD, multiple suicide attempts, chronic constipation, chronic pain on opioids now with SBO - Pt pulled out NG tube yesterday - Had BM today - CLD - Discussed plan with Dr. Yair Zavala PGY-4
--- NOTE | 2018-07-10 20:08 | CARD ---
APPROVED REPORT Date of service: 07/09/2018 EKG Measurement Heart [id number] <Conclusion> Normal sinus rhythm Nonspecific T wave abnormality Abnormal ECG
[2018-07-11] MEDS: Potassium Chl 40 mEq in D5-1/2 1,000 ML IV SCH ×5 (04:24→18:27)
[2018-07-11] MEDS: Albuterol-Ipratrop 3 mg / 0.5 (3 ml) UD INH PRN ×2 (07:40→13:59)
--- NOTE | 2018-07-11 09:44 | CP.PCM.PN ---
Subjective - Date & Time of Evaluation Date of Evaluation: 07/11/18 Time of Evaluation: 06:50 - Subjective Subjective: PGY-[address] general surgery note for Dr Mazariegos Patient seen and examined at bedside. no acute events overnight. Patient is tolerating diet. Had 6-7 bowel movements since yesterday and is currently passing gas. Denies nausea or vomiting. Denies abdominal pain. Objective - Vital Signs/Intake and Output Vital Signs (last 24 hours): Temp Pulse Resp BP Pulse Ox 98.1 F 69 18 137/80 99 07/11/18 08:15 07/11/18 08:15 07/11/18 08:15 07/11/18 08:15 07/11/18 08:15 Intake and Output: 07/11/18 07/11/18 06:59 18:59 Intake Total 1000 Output Total 700 Balance 300 - Medications Medications: Current Medications Albuterol/Ipratropium (Duoneb 3 Mg/0.5 Mg (3 Ml) Ud) 3 ml INH RQ6 PRN PRN Reason: Shortness of Breath Last Admin: 07/11/18 07:40 Dose: 3 ml Alprazolam (Xanax) 0.5 mg PO Q8 PRN PRN Reason: Anxiety Gabapentin (Neurontin) 100 mg PO TID [facility] Last Admin: 07/11/18 09:24 Dose: 100 mg Potassium Chloride/Dextrose/Sod Cl (Potassium Chl 40 Meq In D5-1/2ns) 1,000 mls @ 125 mls/hr IV .Q8H [facility] Last Admin: 07/11/18 06:17 Dose: 125 mls/hr Ketorolac Tromethamine (Toradol) 15 mg IVP Q6 PRN PRN Reason: pain Last Admin: 07/10/18 22:08 Dose: 15 mg Ondansetron HCl (Zofran Inj) 4 mg IVP Q4 PRN PRN Reason: Nausea/Vomiting Last Admin: 07/09/18 13:39 Dose: 4 mg Pantoprazole Sodium (Protonix Inj) 40 mg IVP DAILY [facility] Last Admin: 07/11/18 09:24 Dose: 40 mg Pneumococcal Polyvalent Vaccine (Pneumovax 23 Vaccine) 0.5 ml IM .ONCE ONE Stop: 07/11/18 14:01 - Labs Labs: 07/10/18 07:31 07/10/18 07:31 - Constitutional Appears: Well, Non-toxic, No Acute Distress - Head Exam Head Exam: ATRAUMATIC, NORMAL INSPECTION - Neck Exam Neck Exam: Full ROM - Respiratory Exam Respiratory Exam: NORMAL BREATHING PATTERN. absent: Accessory Muscle Use, Respiratory Distress - GI/Abdominal Exam GI & Abdominal Exam: Soft. absent: Distended, Firm, Guarding, Rigid, Tenderness , Rebound - Neurological Exam Neurological Exam: Alert, Awake, Oriented x3 - Psychiatric Exam Psychiatric exam: Normal Affect, Normal Mood - Skin Skin Exam: Normal Color, Warm Assessment and Plan - Assessment and Plan (Free Text) Assessment: 53 yo M with PMHx of DM, HTN, anxiety, depression, bipolar, PTSD, multiple suicide attempts, chronic constipation, chronic pain on opioids now with resolving SBO Plan: - advance diet to regular diet - monitor vitals, f/u labs - monitor BMs - encourage to ambulate and OOB - management as per Primary Dr. Rothman Plan discussed with Dr Yair Holley, PGY-1
--- NOTE | 2018-07-11 10:12 | CP.PCM.PN ---
Objective - Vital Signs/Intake and Output Vital Signs (last 24 hours): Temp Pulse Resp BP Pulse Ox 98.1 F 69 18 137/80 99 07/11/18 08:15 07/11/18 08:15 07/11/18 08:15 07/11/18 08:15 07/11/18 08:15 Intake and Output: 07/11/18 07/11/18 06:59 18:59 Intake Total 1000 Output Total 700 Balance 300 - Medications Medications: Current Medications Albuterol/Ipratropium (Duoneb 3 Mg/0.5 Mg (3 Ml) Ud) 3 ml INH RQ6 PRN PRN Reason: Shortness of Breath Last Admin: 07/11/18 07:40 Dose: 3 ml Alprazolam (Xanax) 0.5 mg PO Q8 PRN PRN Reason: Anxiety Gabapentin (Neurontin) 100 mg PO TID [facility] Last Admin: 07/11/18 09:24 Dose: 100 mg Potassium Chloride/Dextrose/Sod Cl (Potassium Chl 40 Meq In D5-1/2ns) 1,000 mls @ 125 mls/hr IV .Q8H [facility] Last Admin: 07/11/18 06:17 Dose: 125 mls/hr Ketorolac Tromethamine (Toradol) 15 mg IVP Q6 PRN PRN Reason: pain Last Admin: 07/10/18 22:08 Dose: 15 mg Ondansetron HCl (Zofran Inj) 4 mg IVP Q4 PRN PRN Reason: Nausea/Vomiting Last Admin: 07/09/18 13:39 Dose: 4 mg Pantoprazole Sodium (Protonix Inj) 40 mg IVP DAILY [facility] Last Admin: 07/11/18 09:24 Dose: 40 mg Pneumococcal Polyvalent Vaccine (Pneumovax 23 Vaccine) 0.5 ml IM .ONCE ONE Stop: 07/11/18 14:01 - Labs Labs: 07/10/18 07:31 07/10/18 07:31
[2018-07-11] MEDS ORDERED: Pneumococcal 23-Valent Vaccine IM ONE (14:00)
[2018-07-11 15:50] VITALS: RESP 20
[2018-07-12 08:45] VITALS: BP 141/94; PULSE 76; TEMP 98.8; O2SAT 100
--- NOTE | 2018-07-12 09:59 | CP.PCM.PN ---
Subjective - Date & Time of Evaluation Date of Evaluation: 07/12/18 Time of Evaluation: 08:00 - Subjective Subjective: Patient seen and examined. Tolerating regular diet. Having BM. Objective - Vital Signs/Intake and Output Vital Signs (last 24 hours): Temp Pulse Resp BP Pulse Ox 98.8 F 76 20 141/94 H 100 07/12/18 07:05 07/12/18 07:05 07/12/18 07:05 07/12/18 07:05 07/12/18 07:05 - Medications Medications: Current Medications Albuterol/Ipratropium (Duoneb 3 Mg/0.5 Mg (3 Ml) Ud) 3 ml INH RQ6 PRN PRN Reason: Shortness of Breath Last Admin: 07/11/18 13:59 Dose: 3 ml Alprazolam (Xanax) 0.5 mg PO Q8 PRN PRN Reason: Anxiety Last Admin: 07/12/18 01:03 Dose: 0.5 mg Bupropion HCl (Wellbutrin Xl) 450 mg PO DAILY [facility] Divalproex Sodium (Depakote Dr) 500 mg PO BID COUNT INCLUDES [facility] Gabapentin (Neurontin) 100 mg PO TID [facility] Last Admin: 07/11/18 17:40 Dose: 100 mg Ondansetron HCl (Zofran Inj) 4 mg IVP Q4 PRN PRN Reason: Nausea/Vomiting Last Admin: 07/09/18 13:39 Dose: 4 mg Pantoprazole Sodium (Protonix Inj) 40 mg IVP DAILY [facility] Last Admin: 07/11/18 09:24 Dose: 40 mg Zolpidem Tartrate (Ambien) 5 mg PO HS COUNT [facility]CLUD[facility] Last Admin: 07/11/18 22:11 Dose: 5 mg - Labs Labs: 07/10/18 07:31 07/10/18 07:31 - Constitutional Appears: No Acute Distress - Head Exam Head Exam: NORMOCEPHALIC - Eye Exam Eye Exam: EOMI, Normal appearance - ENT Exam ENT Exam: Mucous Membranes Moist - Cardiovascular Exam Cardiovascular Exam: +S1, +S2 - GI/Abdominal Exam GI & Abdominal Exam: Soft - Neurological Exam Neurological Exam: Alert, Awake, Oriented x3 - Psychiatric Exam Psychiatric exam: Normal Mood - Skin Skin Exam: Dry, Intact, Warm Assessment and Plan - Assessment and Plan (Free Text) Assessment: 53M with SBO- resolved Plan: Clear for d/c from surgical standpoint c/w regular diet Medical management per primary D/w Dr. Yair Lazo PGY3
[2018-07-12] MEDS ORDERED: Divalproex 500 mg DR Tab PO SCH (10:00)
[2018-07-12] MEDS ORDERED: buPROPion 150 mg/24 Hours XL Tab PO SCH (10:00)
== END 2018-07-12 15:35 | disposition home or self-care (01) | DRG 390 ==
LOC: C.ER 23:51 → C.6T 07-09 04:19
PROVIDERS: ADMIT Internal Medicine; ATTEND Internal Medicine
DX: K56.699 Other intestinal obstruction unspecified as to partial versus complete obstruction (principal); E11.9 Type 2 diabetes mellitus without complications; E78.00 Pure hypercholesterolemia, unspecified; F43.10 Post-traumatic stress disorder, unspecified; I10 Essential (primary) hypertension; J45.909 Unspecified asthma, uncomplicated; Z79.891 Long term (current) use of opiate analgesic; F17.210 Nicotine dependence, cigarettes, uncomplicated; Z96.652 Presence of left artificial knee joint; F31.9 Bipolar disorder, unspecified; Z91.5 Personal history of self-harm; K59.09 Other constipation

== ENCOUNTER 2018-10-08 10:50 | Emergency (ER) | payer MEDICARE ==
[2018-10-08 10:50] VITALS: BMI 25.0
[2018-10-08 11:17] VITALS: RESP 18; TEMP 99.3; O2SAT 98
--- NOTE | 2018-10-08 11:33 | C.PDOC ---
History Of Present Illness 53 y/o male presents to the ED complaining of right thumb pain for 1 week. Patient states history of prior fracture to the 1st MCP "many years ago" and is s/p ORIF. Has history of periodic swelling to the joint for "many years now." Patient now complains of recurrent swelling but new-onset pain, which worsens with movement. He is right-hand dominant. Denies any recent trauma or fall. Patient denies taking any medication for symptom relief at home. Time Seen by Provider: 10/08/18 11:20 Chief Complaint (Nursing): Finger,Hand,&Wrist History Per: Patient History/Exam Limitations: no limitations Onset/Duration Of Symptoms: Days Current Symptoms Are (Timing): Still Present Quality: "Pain" Exacerbating Factor(s): Movement Past Medical History Reviewed: Historical Data, Nursing Documentation, Vital Signs Vital Signs: Last Vital Signs Temp 99.3 F 10/08/18 11:16 Pulse 68 10/08/18 11:16 Resp 18 10/08/18 11:16 BP 145/88 10/08/18 11:16 Pulse Ox 98 10/08/18 11:16 - Medical History PMH: Anxiety, Asthma, Back Problems, Depression, Diabetes, Fractures (to right 1st MCP), Gastritis, Gastrointestinal Ulcer, HTN, Hypercholesterolemia, Hyperlipidemia, Paranoia, Post Traumatic Stress Disorder Denies: Chronic Kidney Disease Surgical History: Appendectomy Other Surgeries: ORIF - [facility] Procedures APPLICATION OF SPLINT (08/31/13) OTHER BRONCHOSCOPY (10/20/99) Family History: States: Unknown Family Hx - Social History Hx Tobacco Use: Yes Hx Alcohol Use: No Hx Substance Use: No - Immunization History Hx Tetanus Toxoid Vaccination: No Hx Influenza Vaccination: No Hx Pneumococcal Vaccination: No Review Of Systems Except As Marked, All Systems Reviewed And Found Negative. Constitutional: Negative for: Fever Musculoskeletal: Positive for: Hand Pain (to right thumb, with swelling) Skin: Negative for: Rash, Lesions Neurological: Negative for: Weakness, Numbness, Incoordination Physical Exam - Physical Exam Appears: Well, Non-toxic, No Acute Distress Skin: Normal Color, Warm, No Rash, No Ecchymosis Head: Atraumatic, Normacephalic Eye(s): bilateral: Normal Inspection, PERRL, EOMI Oral Mucosa: Moist Neck: Supple Chest: Symmetrical Respiratory: No Accessory Muscle Use, Other (NARD) Extremity: Normal ROM (with full AROM of right upper extremity; Reproducible pain on movement), Tenderness (generalized tenderness to right 1st digit), Capillary Refill (less than 2sec), Swelling (Right hand with swelling over the right 1st MCP, nonpitting) Pulses: Left Radial: Normal, Right Radial: Normal Neurological/Psych: Oriented x3, Normal Speech, Normal Motor, Normal Sensation, Other (No focal deficits) ED Course And Treatment O2 Sat by Pulse Oximetry: 98 (RA) Pulse Ox Interpretation: Normal - Other Rad XR Right Hand X-Ray: Interpreted by Me, Viewed By Me Interpretation: No acute fracture, no dislocation Medical Decision Making Medical Decision Making: Impression: Right thumb pain and swelling Initial Plan: --X-Ray of right hand --Tylenol 975 mg PO --Motrin 600 mg PO X-ray results reviewed with patient. SPICA splint applied. Disposition Counseled Patient/Family Regarding: Studies Performed, Diagnosis, Need For Followup, Rx Given - Disposition Referrals: [facility] [Outside] [facility] [Outside] Disposition: HOME/ ROUTINE Disposition Time: 12:02 Condition: IMPROVED Prescriptions: Ibuprofen [Motrin] 600 mg PO Q6 #30 tab Instructions: Osteoarthritis (DC) Forms: [facility] (Turkmen) - Clinical Impression Clinical Impression: Pain in thumb joint with movement, Arthralgia - Scribe Statement The provider has reviewed the documentation as recorded by the Scribe Ching De Provider Attestation: All medical record entries made by the Scribe were at my direction and personally dictated by me. I have reviewed the chart and agree that the record accurately reflects my personal performance of the history, physical exam, medical decision making, and the department course for this patient. I have also personally directed, reviewed, and agree with the discharge instructions and disposition. Orthopedic Care Application Of:: Thumb Spica Splint
[2018-10-08 12:13] VITALS: BP 137/72; PULSE 78
--- NOTE | 2018-10-08 13:56 | RAD ---
Date of service: 10/08/2018 PROCEDURE: Right Thumb radiographs. HISTORY: R 1ST MCP PAIN HO PRIOR FX COMPARISON: None. TECHNIQUE: AP radiograph of the right hand, as well as spot oblique and lateral images of thumb were obtained. FINDINGS: RIGHT THUMB: Images are obtained through a splint which obscures osseous detail. The right 1st digit appears unremarkable without acute displaced fracture identified. Remainder of the right hand (as seen on the AP view) grossly unremarkable. JOINTS: No dislocation. SOFT TISSUES: Unremarkable. No evidence of retained radiopaque foreign body. OTHER FINDINGS: None. IMPRESSION: Images are obtained through a splint which obscures osseous detail. The right 1st digit appears unremarkable without acute displaced fracture identified.
== END 2018-10-08 12:11 | disposition home or self-care (01) ==
LOC: C.ER 10:50
DX: M25.541 Pain in joints of right hand (principal)

== ENCOUNTER 2019-02-10 16:28 | Inpatient (IN) | payer MEDICARE ==
[2019-02-10 16:28] VITALS: BMI 25.0
[2019-02-10] MEDS ORDERED: Aspirin 325 mg EC Tablets PO STA (16:59)
--- NOTE | 2019-02-10 17:02 | C.PDOC ---
History Of Present Illness 54 y/o male with PMH of HTN, PTSD, and seizures, presents to the ED for evaluation of left-sided chest pain radiating to the left arm, intermittently for the past 2 weeks. +Previous hx of [place] in 1999. Otherwise, patient denies recent illness, trauma or injury, headache, dizziness, SOB, palpitations, abdominal pain, nausea, vomiting, back pain. Appears comfortable, not in any apparent distress. Time Seen by Provider: 02/10/19 16:46 Chief Complaint (Nursing): Chest Pain History Per: Patient History/Exam Limitations: no limitations Onset/Duration Of Symptoms: Intermittent Episodes Current Symptoms Are (Timing): Still Present Past Medical History Reviewed: Historical Data, Nursing Documentation, Vital Signs Vital Signs: Last Vital Signs Temp 97.6 F 02/10/19 16:52 Pulse 71 02/10/19 16:52 Resp 18 02/10/19 16:52 BP 131/81 02/10/19 16:52 Pulse Ox 100 02/10/19 16:52 - Medical History PMH: Anxiety, Asthma, Back Problems, Depression, Diabetes, Fractures (to right 1st MCP), Gastritis, Gastrointestinal Ulcer, HTN, Hypercholesterolemia, Hyperlipidemia, Paranoia, Post Traumatic Stress Disorder, Seizures Denies: Chronic Kidney Disease Surgical History: Appendectomy - [facility] Procedures APPLICATION OF SPLINT (08/31/13) OTHER BRONCHOSCOPY (10/20/99) Family History: States: Unknown Family Hx - Social History Hx Tobacco Use: Yes Hx Alcohol Use: No Hx Substance Use: No - Immunization History Hx Tetanus Toxoid Vaccination: No Hx Influenza Vaccination: Yes Hx Pneumococcal Vaccination: Yes Review Of Systems Constitutional: Negative for: Fever, Chills, Sweats Eyes: Negative for: Vision Change Cardiovascular: Positive for: Chest Pain. Negative for: Palpitations Respiratory: Negative for: Cough, Shortness of Breath, SOB with Excertion Gastrointestinal: Negative for: Nausea, Vomiting, Abdominal Pain, Diarrhea Musculoskeletal: Negative for: Back Pain Neurological: Negative for: Weakness, Numbness, Headache, Dizziness Physical Exam - Physical Exam Appears: Non-toxic, No Acute Distress Skin: Normal Color, Warm, No Rash Head: Normacephalic Eye(s): bilateral: PERRL Oral Mucosa: Moist Neck: Trachea Midline, Supple Cardiovascular: Rhythm Regular, No Murmur, No JVD Respiratory: No Decreased Breath Sounds, No Accessory Muscle Use, No Rales, No Rhonchi, No Stridor, No Wheezing Gastrointestinal/Abdominal: Soft, No Tenderness, No Distention Extremity: Normal ROM, No Calf Tenderness, No Deformity Pulses: Left Radial: Normal, Right Radial: Normal Neurological/Psych: Oriented x3, Normal Speech, Normal Cranial Nerves, Normal Mo tor, Normal Sensation Gait: Steady ED Course And Treatment - Laboratory Results Result Diagrams: 02/10/19 17:06 02/10/19 17:06 Lab Interpretation: No Acute Changes ECG: Interpreted By Me, Viewed By Me ECG Rhythm: Sinus Rhythm ECG Interpretation: Abnormal Interpretation Of ECG: T wave inversions in leads III and avF, No acute ST or T changes Rate From EC O2 Sat by Pulse Oximetry: 100 (RA) Pulse Ox Interpretation: Normal - Radiology CXR: Interpreted by Me, Viewed By Me, Read By Radiologist CXR Interpretation: Yes: No Acute Disease Progress Note: Labs ordered and reviewed. Pending CXR. Patient given 325 mg PO Aspirin. Pt remained stble during the ED evauation. Blood work review, Troponin I - negative. EKG review, T wave inversion inferior leads noted, new compare to previous study. Case discussed with and admission arranged to Tele. Disposition - Disposition Disposition: HOSPITALIZED Disposition Time: 17:55 Condition: STABLE - Clinical Impression Clinical Impression: Chest pain due to coronary artery disease, Abnormal EKG - PA / [employer] / Resident Statement MD/DO has reviewed & agrees with the documentation as recorded. - Scribe Statement The provider has reviewed the documentation as recorded by the Radha De All medical record entries made by the Scribe were at my direction and personally dictated by me. I have reviewed the chart and agree that the record accurately reflects my personal performance of the history, physical exam, medical decision making, and the department course for this patient. I have also personally directed, reviewed, and agree with the discharge instructions and disposition.
[2019-02-10 17:11] LABS: BASO # 0.1 K/uL (0.0-0.2); BASO % 0.7 % (0.0-2.0); EOS # 0.1 K/uL (0.0-0.7); EOS % 1.4 % (0.0-4.0); HEMOGLOBIN 14.4 g/dL (12.0-18.0); LYMPH # 2.3 K/uL (1.0-4.3); MEAN CELL VOLUME 95.8 fL (80.0-94.0); MEAN CORPUSCULAR HEMOGLOBIN 32.2 pg (27.0-31.0); MEAN CORPUSCULAR HGB CONC 33.6 g/dL (33.0-37.0); MEAN PLATELET VOLUME 7.6 fL (7.2-11.7); MONO # 0.5 K/uL (0.0-0.8); MONO % 6.4 % (0.0-10.0); NEUT # 4.9 K/uL (1.8-7.0); NEUT % 62.5 % (50.0-75.0); NRBC % 0.1 % (0.0-2.0); RBC 4.48 Mil/uL (4.40-5.90); RED CELL DISTRIBUTION WIDTH 13.7 % (11.5-14.5); WHITE BLOOD COUNT 7.8 K/uL (4.8-10.8)
[2019-02-10 17:19] LABS: INR 1.1; PROTHROMBIN TIME 11.5 SECONDS (9.7-12.2)
[2019-02-10 17:32] LABS: ALB/GLOB RATIO 1.5 (1.0-2.1); ALBUMIN 4.1 g/dL (3.5-5.0); ALT/SGPT 17 U/L (21-72); AST/SGOT 25 U/L (17-59); BLOOD UREA NITROGEN 18 mg/dL (9-20); CALCIUM 9.1 mg/dl (8.6-10.4); GFR NON-AFRICAN AMERICAN > 60
[2019-02-10 17:38] LABS: OPIATES, UR NEGATIVE (NEGATIVE)
--- NOTE | 2019-02-10 17:38 | RAD ---
HISTORY: chest pain COMPARISON: Chest x-ray performed 07/09/18 TECHNIQUE: Chest PA and lateral FINDINGS: LUNGS: No focal consolidation. Numerous scattered bilateral probable calcified granulomas. Please note that chest x-ray has limited sensitivity for the detection of pulmonary masses. PLEURA: No significant pleural effusion identified. No definite pneumothorax . CARDIOVASCULAR: Heart size appears within normal limits. Atherosclerotic calcifications of the aortic knob. OSSEOUS STRUCTURES: Degenerative changes of the spine. VISUALIZED UPPER ABDOMEN: Unremarkable. OTHER FINDINGS: None. IMPRESSION: No focal consolidation. Numerous scattered probable calcified granulomas.
[2019-02-10 17:42] LABS: URINE AMORPHOUS SEDIMENT MODERATE /ul (<OCC); URINE BILIRUBIN NEGATIVE (NEGATIVE); URINE BLOOD NEGATIVE (NEGATIVE); URINE CALCIUM OXALATE CRYSTALS OCC /hpf (<OCC); URINE CLARITY Hazy (Clear); URINE COLOR Yellow (YELLOW); URINE GLUCOSE (UA) NORMAL (Normal); URINE LEUKOCYTE ESTERASE NEG Leu/uL (Negative); URINE PROTEIN NEGATIVE (NEGATIVE); URINE UROBILINOGEN NORMAL mg/dL (0.2-1.0)
[2019-02-10 18:03] LABS: PHENCYCLIDINE, UR NEGATIVE (NEGATIVE)
[2019-02-10 18:11] LABS: BARBITURATES, UR POSITIVE (NEGATIVE); BENZODIAZEPINES, UR POSITIVE (NEGATIVE)
[2019-02-10 19:03] LABS: B-TYPE NATRIURETIC PEPTIDE 62.4 pg/mL (0-900)
[2019-02-10] MEDS ORDERED: oxyCODONE 10 mg ER Tab (oxyCONTIN) PO PRN (20:23)
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
[2019-02-10] MEDS: Lidocaine 5% Patch TD SCH (20:52)
[2019-02-10] MEDS: Albuterol-Ipratrop 3 mg / 0.5 (3 ml) UD INH SCH (23:48)
--- NOTE | 2019-02-11 07:38 | RAD ---
Date of service: 02/10/2019 PROCEDURE: Radiographs of the Left Shoulder HISTORY: pain COMPARISON: No prior. TECHNIQUE: 3 views obtained. FINDINGS: BONES: No acute fracture or dislocation is identified at this time. However, there is a prior depression also associated with subcortical sclerosis at the medial apex of the left humeral head suspicious for further osteo necrosis as previously suspected. Follow-up CT or MRI is advised for added characterization if not already evaluated. JOINTS: No joint separation or dislocation. Glenohumeral and acromioclavicular joints preserved. Relatively advanced osteoarthritis is appreciate the glenohumeral joint. Limited AC joint degenerative changes noted. SOFT TISSUES: Normal. OTHER FINDINGS: None. 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 No dislocation. Relatively advanced osteoarthritis is developing at the glenohumeral joint.
[2019-02-11] MEDS: Albuterol-Ipratrop 3 mg / 0.5 (3 ml) UD INH SCH ×2 (07:47→16:14)
[2019-02-11] MEDS: Lidocaine 5% Patch TD SCH (09:41)
[2019-02-11] MEDS: Divalproex 500 mg DR Tab PO SCH ×2 (09:41→17:39)
[2019-02-11] MEDS: Docusate-Senna 50 mg-8.6 mg Tab PO SCH (09:41)
[2019-02-11] MEDS ORDERED: BUPROPION 450 MG PO SCH (10:00)
[2019-02-11] MEDS: Dextrose 5%/0.45% NS 1,000 ML IV SCH (15:09)
--- NOTE | 2019-02-11 19:41 | CARD ---
APPROVED REPORT Date of service: 02/11/2019 EXAM: Two-dimensional and M-mode echocardiogram with Doppler and color Doppler. INDICATION Abnormal EKG/Arrhythmia Dizziness and Vertigo Dyspnea Chest Pain RISK FACTORS Hypertension Hyperlipidemia Diabetes 2D DIMENSIONS IVSd0.9 (0.7-1.1cm)LVDd4.8 (3.9-5.9cm) PWd0.8 (0.7-1.1cm)LA Ukcedq85 (18-58mL) LVDs3.5 (2.5-4.0cm)FS (%) 26.7 % LVEF (%)52.0 (>50%)LVEF (Shetty's)51.17 % M-Mode DIMENSIONS Left Atrium (MM)3.56 (2.5-4.0cm)IVSd0.82 (0.7-1.1cm) Aortic Root3.06 (2.2-3.7cm)LVDd5.59 (4.0-5.6cm) Aortic Cusp Exc.2.47 (1.5-2.0cm)PWd0.74 (0.7-1.1cm) FS (%) 32 %LVDs3.80 (2.0-3.8cm) LVEF (%)53 (>50%) Mitral Valve MV E Gbdigpiv37.8cm/sMV A Itdbxrqi99.7cm/sE/A ratio0.8 TDI Lateral E' Peak V12.35cm/sMedial E' Peak V9.26cm/sE/Lateral E'5.2 E/Medial E'6.9 Tricuspid Valve TR Peak [id number]/sTR Peak [id number] LEFT VENTRICLE The left ventricle is normal size. There is normal left ventricular wall thickness. Left ventricle systolic function is normal. The Ejection Fraction is 50-55%. There is normal LV segmental wall motion. Tissue Doppler imaging reveals abnormal left ventricular diastolic dysfunction. RIGHT VENTRICLE The right ventricle is normal size. There is normal right ventricular wall thickness. The right ventricular systolic function is normal. ATRIA The left atrium size is normal. The right atrium size is normal. The interatrial septum is intact with no evidence for an atrial septal defect. AORTIC VALVE The aortic valve is normal in structure. No aortic regurgitation is present. There is no aortic valvular stenosis. There is no aortic valvular vegetation. MITRAL VALVE The mitral valve is normal in structure. There is no evidence of mitral valve prolapse. There is no mitral valve stenosis. There is no mitral valve regurgitation noted. TRICUSPID VALVE The tricuspid valve is normal in structure. There is mild tricuspid regurgitation. Right ventricular systolic pressure is estimated at less than 30 mmHg. There is no pulmonary hypertension. PULMONIC VALVE The pulmonic valve is not well visualized. There is mild pulmonic valvular regurgitation. GREAT VESSELS The aortic root is normal in size. PERICARDIAL EFFUSION There is no significant pericardial effusion. <Conclusion> Left ventricle systolic function is normal. The Ejection Fraction is 50-55%. Diastolic dysfunction. The interatrial septum is intact with no evidence for an atrial septal defect. No aortic regurgitation is present. There is no mitral valve regurgitation noted. There is mild tricuspid regurgitation. There is no pulmonary HTN.
[2019-02-12] MEDS: Albuterol-Ipratrop 3 mg / 0.5 (3 ml) UD INH SCH ×3 (01:14→16:01)
--- NOTE | 2019-02-12 06:33 | CARD ---
APPROVED REPORT Date of service: 02/10/2019 EKG Measurement Heart [id number] <Conclusion> Normal sinus rhythm T wave abnormality, consider inferior ischemia Abnormal ECG
[2019-02-12] MEDS: Dextrose 5%/0.45% NS 1,000 ML IV SCH (09:45)
[2019-02-12] MEDS: Lidocaine 5% Patch TD SCH (09:50)
[2019-02-12] MEDS: Divalproex 500 mg DR Tab PO SCH ×2 (09:51→18:09)
[2019-02-12] MEDS: Docusate-Senna 50 mg-8.6 mg Tab PO SCH (09:52)
[2019-02-12] MEDS: buPROPion 150 mg/24 Hours XL Tab PO SCH (13:03)
--- NOTE | 2019-02-12 22:28 | CP.PCM.PN ---
Subjective - Date & Time of Evaluation Date of Evaluation: 02/12/19 Time of Evaluation: 22:28 - Subjective Subjective: Patient is still n.p.o. He has no nausea no vomiting. Scheduled to have a stress test tomorrow. We will continue IV fluid. Pain management. We will follow the patient Objective - Vital Signs/Intake and Output Vital Signs (last 24 hours): Temp Pulse Resp BP Pulse Ox 98.4 F 90 18 155/83 H 97 02/12/19 15:40 02/12/19 16:00 02/12/19 15:40 02/12/19 15:40 02/12/19 15:40 Intake and Output: 02/12/19 02/13/19 18:59 06:59 Intake Total 200 Balance 200 - Medications Medications: Current Medications Albuterol/Ipratropium (Duoneb 3 Mg/0.5 Mg (3 Ml) Ud) 3 ml INH RQ8 [facility] Last Admin: 02/12/19 16:01 Dose: 3 ml Alprazolam (Xanax) 1 mg PO Q8 PRN PRN Reason: Anxiety Last Admin: 02/12/19 13:10 Dose: 1 mg Aspirin (Aspirin Chewable) 81 mg PO DAILY [facility] Last Admin: 02/12/19 10:52 Dose: 81 mg Bupropion HCl (Wellbutrin Xl) 450 mg PO DAILY [facility] Last Admin: 02/12/19 13:03 Dose: 450 mg Divalproex Sodium (Depakote Dr) 500 mg PO BID [facility] Last Admin: 02/12/19 18:09 Dose: 500 mg Docusate Sodium (Colace) 100 mg PO BID [facility] Last Admin: 02/12/19 18:09 Dose: 100 mg Heparin Sodium (Porcine) (Heparin) 5,000 units SC Q8 [facility] Last Admin: 02/12/19 21:19 Dose: 5,000 units Dextrose/Sodium Chloride (Dextrose 5%/0.45% Ns 1000 Ml) 1,000 mls @ 50 mls/hr IV .Q20H [facility] Last Admin: 02/12/19 09:45 Dose: 50 mls/hr Ibuprofen (Motrin Tab) 600 mg PO Q6 PRN PRN Reason: Pain, moderate (4-7) Lidocaine (Lidoderm) 1 ea TD DAILY [facility] Last Admin: 02/12/19 09:50 Dose: 1 ea Morphine Sulfate (Morphine) 2 mg IVP Q4 PRN PRN Reason: Pain, severe (8-10) Last Admin: 02/12/19 20:27 Dose: 2 mg Oxycodone HCl (Oxycontin Extended Release Tab) 15 mg PO TID PRN PRN Reason: Pain, moderate (4-7) Stop: 02/13/19 20:24 Senna/Docusate Sodium (Senokot S 50 Mg-8.6 Mg) 1 tab PO DAILY [facility] Last Admin: 02/12/19 09:52 Dose: 1 tab - Labs Labs: 02/10/19 17:06 02/10/19 17:06 PT 11.5 SECONDS (9.7-12.2) 02/10/19 17:06 INR 1.1 02/10/19 17:06 APTT 36 SECONDS (21-34) H 02/10/19 17:06
--- NOTE | 2019-02-12 23:28 | CP.PCM.CON ---
History of Present Illness - History of Present Illness History of Present Illness: 54 y/o male with PMH of HTN, PTSD, and seizures, presents to the ED for evaluation of left-sided chest pain radiating to the left arm, intermittently for the past 2 weeks. +Previous hx of [place] in 1999. Otherwise, patient denies recent illness, trauma or injury, headache, dizziness, SOB, palpitations, abdominal pain, nausea, vomiting, back pain. Appears comfortable, not in any apparent distress. Chief Complaint (Nursing): Chest Pain History Per: Patient History/Exam Limitations: no limitations Onset/Duration Of Symptoms: Intermittent Episodes Current Symptoms Are (Timing): Still Present Past Medical History Reviewed: Historical Data, Nursing Documentation, Vital Signs Vital Signs: Last Vital Signs Temp 97.6 F 02/10/19 16:52 Pulse 71 02/10/19 16:52 Resp 18 02/10/19 16:52 BP 131/81 02/10/19 16:52 Pulse Ox 100 02/10/19 16:52 - Medical History PMH: Anxiety, Asthma, Back Problems, Depression, Diabetes, Fractures (to right 1st MCP), Gastritis, Gastrointestinal Ulcer, HTN, Hypercholesterolemia, Hyperlipidemia, Paranoia, Post Traumatic Stress Disorder, Seizures Denies: Chronic Kidney Disease Surgical History: Appendectomy - [facility] Procedures APPLICATION OF SPLINT (08/31/13) OTHER BRONCHOSCOPY (10/20/99) Family History: States: Unknown Family Hx - Social History Hx Tobacco Use: Yes Hx Alcohol Use: No Hx Substance Use: No - Immunization History Hx Tetanus Toxoid Vaccination: No Hx Influenza Vaccination: Yes Hx Pneumococcal Vaccination: Yes Review Of Systems Constitutional: Negative for: Fever, Chills, Sweats Eyes: Negative for: Vision Change Cardiovascular: Positive for: Chest Pain. Negative for: Palpitations Respiratory: Negative for: Cough, Shortness of Breath, SOB with Excertion Gastrointestinal: Negative for: Nausea, Vomiting, Abdominal Pain, Diarrhea Musculoskeletal: Negative for: Back Pain Neurological: Negative for: Weakness, Numbness, Headache, Dizziness Physical Exam - Physical Exam Appears: Non-toxic, No Acute Distress Skin: Normal Color, Warm, No Rash Head: Normacephalic Eye(s): bilateral: PERRL Oral Mucosa: Moist Neck: Trachea Midline, Supple Cardiovascular: Rhythm Regular, No Murmur, No JVD Respiratory: No Decreased Breath Sounds, No Accessory Muscle Use, No Rales, No Rhonchi, No Stridor, No Wheezing Gastrointestinal/Abdominal: Soft, No Tenderness, No Distention Extremity: Normal ROM, No Calf Tenderness, No Deformity Pulses: Left Radial: Normal, Right Radial: Normal Neurological/Psych: Oriented x3, Normal Speech, Normal Cranial Nerves, Normal Motor, Normal Sensation Gait: Steady Past Patient History - Infectious Disease Hx of Infectious Diseases: None - Past Medical History & Family History Past Medical History?: Yes - Past Social History Smoking Status: Former Smoker - CARDIAC Hx Hypercholesterolemia: Yes Hx Hypertension: Yes - PULMONARY Hx Asthma: Yes - NEUROLOGICAL Hx Seizures: Yes - HEENT Hx HEENT Problems: Yes Hx Glaucoma: Yes - RENAL Hx Chronic Kidney Disease: No - ENDOCRINE/METABOLIC Hx Diabetes Mellitus Type 2: Yes - HEMATOLOGICAL/ONCOLOGICAL Hx Blood Disorders: No - INTEGUMENTARY Hx Dermatological Problems: No - MUSCULOSKELETAL/RHEUMATOLOGICAL Hx Fractures: Yes (to right 1st MCP) - GASTROINTESTINAL Hx Gastritis: Yes - GENITOURINARY/GYNECOLOGICAL Hx Genitourinary Disorders: Yes Hx Prostate Problems: No Other/Comment: FREQUENCY - PSYCHIATRIC Hx Anxiety: Yes Hx Depression: Yes Hx Paranoia: Yes Hx Post Traumatic Stress Disorder: Yes Hx Substance Use: No - SURGICAL HISTORY Hx Appendectomy: Yes - ANESTHESIA Hx Anesthesia: Yes Hx Anesthesia Reactions: No Hx Malignant Hyperthermia: No Has any member of the family had a problem w/ anesthesia?: No Meds Allergies/Adverse Reactions: Allergies Allergy/AdvReac Type Severity Reaction Status Date / Time carbamazepine Allergy Severe RASH Verified 02/10/19 16:58 - Medications Medications: Current Medications Albuterol/Ipratropium (Duoneb 3 Mg/0.5 Mg (3 Ml) Ud) 3 ml INH RQ8 [facility] Last Admin: 02/12/19 16:01 Dose: 3 ml Alprazolam (Xanax) 1 mg PO Q8 PRN PRN Reason: Anxiety Last Admin: 02/12/19 13:10 Dose: 1 mg Aspirin (Aspirin Chewable) 81 mg PO DAILY [facility] Last Admin: 02/12/19 10:52 Dose: 81 mg Bupropion HCl (Wellbutrin Xl) 450 mg PO DAILY [facility] Last Admin: 02/12/19 13:03 Dose: 450 mg Divalproex Sodium (Depakote Dr) 500 mg PO BID [facility] Last Admin: 02/12/19 18:09 Dose: 500 mg Docusate Sodium (Colace) 100 mg PO BID [facility] Last Admin: 02/12/19 18:09 Dose: 100 mg Heparin Sodium (Porcine) (Heparin) 5,000 units SC Q8 [facility] Last Admin: 02/12/19 21:19 Dose: 5,000 units Dextrose/Sodium Chloride (Dextrose 5%/0.45% Ns 1000 Ml) 1,000 mls @ 50 mls/hr IV .Q20H [facility] Last Admin: 02/12/19 09:45 Dose: 50 mls/hr Ibuprofen (Motrin Tab) 600 mg PO Q6 PRN PRN Reason: Pain, moderate (4-7) Lidocaine (Lidoderm) 1 ea TD DAILY [facility] Last Admin: 02/12/19 09:50 Dose: 1 ea Morphine Sulfate (Morphine) 2 mg IVP Q4 PRN PRN Reason: Pain, severe (8-10) Last Admin: 02/12/19 20:27 Dose: 2 mg Oxycodone HCl (Oxycontin Extended Release Tab) 15 mg PO TID PRN PRN Reason: Pain, moderate (4-7) Stop: 02/13/19 20:24 Senna/Docusate Sodium (Senokot S 50 Mg-8.6 Mg) 1 tab PO DAILY [facility] Last Admin: 02/12/19 09:52 Dose: 1 tab Results - Vital Signs Recent Vital Signs: Last Vital Signs Temp 98.4 F 02/12/19 15:40 Pulse 90 02/12/19 16:00 Resp 18 02/12/19 15:40 BP 155/83 H 02/12/19 15:40 Pulse Ox 97 02/12/19 15:40 - Labs Result Diagrams: 02/10/19 17:06 02/10/19 17:06 Labs: Laboratory Results - last 24 hr 02/10/19 02/11/19 02/11/19 22:47 06:26 11:23 POC Glucose (mg/dL) 101 86 105 02/11/19 02/12/19 02/12/19 21:20 06:39 11:26 POC Glucose (mg/dL) 100 93 122 H Assessment & Plan - Assessment and Plan (Free Text) Assessment: 54 M with cardiac risk factors, asthma admitted for chest pain Check stress test and ECHO in am
--- NOTE | 2019-02-13 00:06 | CP.PCM.CON ---
History of Present Illness - History of Present Illness History of Present Illness: 54 y/o male with PMH of HTN, PTSD, and seizures, presents to the ED for evaluation of left-sided chest pain radiating to the left arm, intermittently for the past 2 weeks. +Previous hx of [place] in 1999. Otherwise, patient denies recent illness, trauma or injury, headache, dizziness, SOB, palpitations, abdominal pain, nausea, vomiting, back pain. Appears comfortable, not in any apparent distress. Chief Complaint (Nursing): Chest Pain History Per: Patient History/Exam Limitations: no limitations Onset/Duration Of Symptoms: Intermittent Episodes Current Symptoms Are (Timing): Still Present Past Medical History Reviewed: Historical Data, Nursing Documentation, Vital Signs Vital Signs: Last Vital Signs Temp 97.6 F 02/10/19 16:52 Pulse 71 02/10/19 16:52 Resp 18 02/10/19 16:52 BP 131/81 02/10/19 16:52 Pulse Ox 100 02/10/19 16:52 - Medical History PMH: Anxiety, Asthma, Back Problems, Depression, Diabetes, Fractures (to right 1st MCP), Gastritis, Gastrointestinal Ulcer, HTN, Hypercholesterolemia, Hyperlipidemia, Paranoia, Post Traumatic Stress Disorder, Seizures Denies: Chronic Kidney Disease Surgical History: Appendectomy - [facility] Procedures APPLICATION OF SPLINT (08/31/13) OTHER BRONCHOSCOPY (10/20/99) Family History: States: Unknown Family Hx - Social History Hx Tobacco Use: Yes Hx Alcohol Use: No Hx Substance Use: No - Immunization History Hx Tetanus Toxoid Vaccination: No Hx Influenza Vaccination: Yes Hx Pneumococcal Vaccination: Yes Review Of Systems Constitutional: Negative for: Fever, Chills, Sweats Eyes: Negative for: Vision Change Cardiovascular: Positive for: Chest Pain. Negative for: Palpitations Respiratory: Negative for: Cough, Shortness of Breath, SOB with Excertion Gastrointestinal: Negative for: Nausea, Vomiting, Abdominal Pain, Diarrhea Musculoskeletal: Negative for: Back Pain Neurological: Negative for: Weakness, Numbness, Headache, Dizziness Physical Exam - Physical Exam Appears: Non-toxic, No Acute Distress Skin: Normal Color, Warm, No Rash Head: Normacephalic Eye(s): bilateral: PERRL Oral Mucosa: Moist Neck: Trachea Midline, Supple Cardiovascular: Rhythm Regular, No Murmur, No JVD Respiratory: No Decreased Breath Sounds, No Accessory Muscle Use, No Rales, No Rhonchi, No Stridor, No Wheezing Gastrointestinal/Abdominal: Soft, No Tenderness, No Distention Extremity: Normal ROM, No Calf Tenderness, No Deformity Pulses: Left Radial: Normal, Right Radial: Normal Neurological/Psych: Oriented x3, Normal Speech, Normal Cranial Nerves, Normal Motor, Normal Sensation Gait: Steady Past Patient History - Infectious Disease Hx of Infectious Diseases: None - Past Medical History & Family History Past Medical History?: Yes - Past Social History Smoking Status: Former Smoker - CARDIAC Hx Hypercholesterolemia: Yes Hx Hypertension: Yes - PULMONARY Hx Asthma: Yes - NEUROLOGICAL Hx Seizures: Yes - HEENT Hx HEENT Problems: Yes Hx Glaucoma: Yes - RENAL Hx Chronic Kidney Disease: No - ENDOCRINE/METABOLIC Hx Diabetes Mellitus Type 2: Yes - HEMATOLOGICAL/ONCOLOGICAL Hx Blood Disorders: No - INTEGUMENTARY Hx Dermatological Problems: No - MUSCULOSKELETAL/RHEUMATOLOGICAL Hx Fractures: Yes (to right 1st MCP) - GASTROINTESTINAL Hx Gastritis: Yes - GENITOURINARY/GYNECOLOGICAL Hx Genitourinary Disorders: Yes Hx Prostate Problems: No Other/Comment: FREQUENCY - PSYCHIATRIC Hx Anxiety: Yes Hx Depression: Yes Hx Paranoia: Yes Hx Post Traumatic Stress Disorder: Yes Hx Substance Use: No - SURGICAL HISTORY Hx Appendectomy: Yes - ANESTHESIA Hx Anesthesia: Yes Hx Anesthesia Reactions: No Hx Malignant Hyperthermia: No Has any member of the family had a problem w/ anesthesia?: No Meds Allergies/Adverse Reactions: Allergies Allergy/AdvReac Type Severity Reaction Status Date / Time carbamazepine Allergy Severe RASH Verified 02/10/19 16:58 - Medications Medications: Current Medications Albuterol/Ipratropium (Duoneb 3 Mg/0.5 Mg (3 Ml) Ud) 3 ml INH RQ8 [facility] Last Admin: 02/12/19 16:01 Dose: 3 ml Alprazolam (Xanax) 1 mg PO Q8 PRN PRN Reason: Anxiety Last Admin: 02/12/19 13:10 Dose: 1 mg Aspirin (Aspirin Chewable) 81 mg PO DAILY [facility] Last Admin: 02/12/19 10:52 Dose: 81 mg Bupropion HCl (Wellbutrin Xl) 450 mg PO DAILY [facility] Last Admin: 02/12/19 13:03 Dose: 450 mg Divalproex Sodium (Depakote Dr) 500 mg PO BID [facility] Last Admin: 02/12/19 18:09 Dose: 500 mg Docusate Sodium (Colace) 100 mg PO BID [facility] Last Admin: 02/12/19 18:09 Dose: 100 mg Heparin Sodium (Porcine) (Heparin) 5,000 units SC Q8 [facility] Last Admin: 02/12/19 21:19 Dose: 5,000 units Dextrose/Sodium Chloride (Dextrose 5%/0.45% Ns 1000 Ml) 1,000 mls @ 50 mls/hr IV .Q20H [facility] Last Admin: 02/12/19 09:45 Dose: 50 mls/hr Ibuprofen (Motrin Tab) 600 mg PO Q6 PRN PRN Reason: Pain, moderate (4-7) Lidocaine (Lidoderm) 1 ea TD DAILY [facility] Last Admin: 02/12/19 09:50 Dose: 1 ea Morphine Sulfate (Morphine) 2 mg IVP Q4 PRN PRN Reason: Pain, severe (8-10) Last Admin: 02/12/19 20:27 Dose: 2 mg Oxycodone HCl (Oxycontin Extended Release Tab) 15 mg PO TID PRN PRN Reason: Pain, moderate (4-7) Stop: 02/13/19 20:24 Senna/Docusate Sodium (Senokot S 50 Mg-8.6 Mg) 1 tab PO DAILY [facility] Last Admin: 02/12/19 09:52 Dose: 1 tab Results - Vital Signs Recent Vital Signs: Last Vital Signs Temp 98.4 F 02/12/19 15:40 Pulse 90 02/12/19 16:00 Resp 18 02/12/19 15:40 BP 155/83 H 02/12/19 15:40 Pulse Ox 97 02/12/19 15:40 - Labs Result Diagrams: 02/10/19 17:06 02/10/19 17:06 Labs: Laboratory Results - last 24 hr 02/10/19 02/11/19 02/11/19 22:47 06:26 11:23 POC Glucose (mg/dL) 101 86 105 02/11/19 02/12/19 02/12/19 21:20 06:39 11:26 POC Glucose (mg/dL) 100 93 122 H Assessment & Plan - Assessment and Plan (Free Text) Assessment: 54 M with cardiac risk factors, asthma admitted for chest pain Check stress test and ECHO in am Past Patient History - Infectious Disease Hx of Infectious Diseases: None - Past Medical History & Family History Past Medical History?: Yes - Past Social History Smoking Status: Former Smoker - CARDIAC Hx Hypercholesterolemia: Yes Hx Hypertension: Yes - PULMONARY Hx Asthma: Yes - NEUROLOGICAL Hx Seizures: Yes - HEENT Hx HEENT Problems: Yes Hx Glaucoma: Yes - RENAL Hx Chronic Kidney Disease: No - ENDOCRINE/METABOLIC Hx Diabetes Mellitus Type 2: Yes - HEMATOLOGICAL/ONCOLOGICAL Hx Blood Disorders: No - INTEGUMENTARY Hx Dermatological Problems: No - MUSCULOSKELETAL/RHEUMATOLOGICAL Hx Fractures: Yes (to right 1st MCP) - GASTROINTESTINAL Hx Gastritis: Yes - GENITOURINARY/GYNECOLOGICAL Hx Genitourinary Disorders: Yes Hx Prostate Problems: No Other/Comment: FREQUENCY - PSYCHIATRIC Hx Anxiety: Yes Hx Depression: Yes Hx Paranoia: Yes Hx Post Traumatic Stress Disorder: Yes Hx Substance Use: No - SURGICAL HISTORY Hx Appendectomy: Yes - ANESTHESIA Hx Anesthesia: Yes Hx Anesthesia Reactions: No Hx Malignant Hyperthermia: No Has any member of the family had a problem w/ anesthesia?: No Meds Allergies/Adverse Reactions: Allergies Allergy/AdvReac Type Severity Reaction Status Date / Time carbamazepine Allergy Severe RASH Verified 02/10/19 16:58 - Medications Medications: Current Medications Albuterol/Ipratropium (Duoneb 3 Mg/0.5 Mg (3 Ml) Ud) 3 ml INH RQ8 [facility] Last Admin: 02/12/19 16:01 Dose: 3 ml Alprazolam (Xanax) 1 mg PO Q8 PRN PRN Reason: Anxiety Last Admin: 02/12/19 13:10 Dose: 1 mg Aspirin (Aspirin Chewable) 81 mg PO DAILY [facility] Last Admin: 02/12/19 10:52 Dose: 81 mg Bupropion HCl (Wellbutrin Xl) 450 mg PO DAILY [facility] Last Admin: 02/12/19 13:03 Dose: 450 mg Divalproex Sodium (Depakote Dr) 500 mg PO BID [facility] Last Admin: 02/12/19 18:09 Dose: 500 mg Docusate Sodium (Colace) 100 mg PO BID [facility] Last Admin: 02/12/19 18:09 Dose: 100 mg Heparin Sodium (Porcine) (Heparin) 5,000 units SC Q8 [facility] Last Admin: 02/12/19 21:19 Dose: 5,000 units Dextrose/Sodium Chloride (Dextrose 5%/0.45% Ns 1000 Ml) 1,000 mls @ 50 mls/hr IV .Q20H [facility] Last Admin: 02/12/19 09:45 Dose: 50 mls/hr Ibuprofen (Motrin Tab) 600 mg PO Q6 PRN PRN Reason: Pain, moderate (4-7) Lidocaine (Lidoderm) 1 ea TD DAILY [facility] Last Admin: 02/12/19 09:50 Dose: 1 ea Morphine Sulfate (Morphine) 2 mg IVP Q4 PRN PRN Reason: Pain, severe (8-10) Last Admin: 02/12/19 20:27 Dose: 2 mg Oxycodone HCl (Oxycontin Extended Release Tab) 15 mg PO TID PRN PRN Reason: Pain, moderate (4-7) Stop: 02/13/19 20:24 Senna/Docusate Sodium (Senokot S 50 Mg-8.6 Mg) 1 tab PO DAILY [facility] Last Admin: 02/12/19 09:52 Dose: 1 tab Results - Vital Signs Recent Vital Signs: Last Vital Signs Temp 98.4 F 02/12/19 15:40 Pulse 90 02/12/19 16:00 Resp 18 02/12/19 15:40 BP 155/83 H 02/12/19 15:40 Pulse Ox 97 02/12/19 15:40 - Labs Result Diagrams: 02/10/19 17:06 02/10/19 17:06 Labs: Laboratory Results - last 24 hr 02/10/19 02/11/19 02/11/19 22:47 06:26 11:23 POC Glucose (mg/dL) 101 86 105 02/11/19 02/12/19 02/12/19 21:20 06:39 11:26 POC Glucose (mg/dL) 100 93 122 H
[2019-02-13] MEDS: Albuterol-Ipratrop 3 mg / 0.5 (3 ml) UD INH SCH ×3 (01:16→15:50)
[2019-02-13] MEDS: Dextrose 5%/0.45% NS 1,000 ML IV SCH (05:47)
[2019-02-13 08:00] VITALS: PULSE 80
[2019-02-13] MEDS: Docusate-Senna 50 mg-8.6 mg Tab PO SCH (11:52)
[2019-02-13] MEDS: Lidocaine 5% Patch TD SCH (11:53)
[2019-02-13] MEDS: Divalproex 500 mg DR Tab PO SCH ×2 (11:53→18:25)
[2019-02-13] MEDS: buPROPion 150 mg/24 Hours XL Tab PO SCH (11:56)
[2019-02-13 13:39] LABS: BASO % 0.6 % (0.0-2.0); EOS % 0.2 % (0.0-4.0); LYMPH % 26.9 % (20.0-40.0); MEAN CELL VOLUME 97.2 fL (80.0-94.0); MEAN CORPUSCULAR HEMOGLOBIN 33.2 pg (27.0-31.0); MEAN CORPUSCULAR HGB CONC 34.2 g/dL (33.0-37.0); MEAN PLATELET VOLUME 8.2 fL (7.2-11.7); MONO # 0.5 K/uL (0.0-0.8); MONO % 6.4 % (0.0-10.0); NEUT # 4.8 K/uL (1.8-7.0); NEUT % 65.9 % (50.0-75.0); RBC 4.98 Mil/uL (4.40-5.90); RED CELL DISTRIBUTION WIDTH 14.1 % (11.5-14.5); WHITE BLOOD COUNT 7.3 K/uL (4.8-10.8)
[2019-02-13 13:41] LABS: HEMOGLOBIN 16.5 g/dL (12.0-18.0)
[2019-02-13 13:54] LABS: BLOOD UREA NITROGEN 13 mg/dL (9-20); GFR NON-AFRICAN AMERICAN > 60
[2019-02-13 17:35] VITALS: BP 128/79; RESP 20; TEMP 98.7; O2SAT 97
--- NOTE | 2019-02-13 23:49 | CARD ---
APPROVED REPORT Date of service: 02/13/2019 Protocol: LEXISCAN Test Type: LEXISCAN STRESS Test Indications: CP Medical History: CP Target HR: 166 bpm Resting ECG: abnormal Resting Heart Rate: 85 bpm Resting Blood Pressure: 136/80mmHg submaximum (85%): 141 bpm TEST SUMMARY [id number].[id number]/80.0. INFUSIONDOSE 100:300.00.01.088/.0. [id number]/80.0. PROCEDURE Pharmacologic stress testing was performed using 0.4mg per 5ml of regadenoson given intravenously over 7-10 seconds. POST EXERCISE Reason for Termination: Protocol Completed Target HR: No Max HR: 88 bpm 66% of Maximum Predicted HR: 166 bpm Exercise duration: 00:30 min:sec, 0 Stage Exercise capacity: 1.0METs Max Blood Pressure: 138/80mmHg Blood Pressure response to exercise: normal resting BP - appropriate response Heart Rate response to exercise: appropriate Chest Pain: No, none Angina index: 0 Arrhythmia: No, none ST Change: Yes, No ischemic ECG changes Deviation: 0 mm INTERPRETATION Stress EKG Conclusion: Nuclear report to follow. EXAM: Myocardial Perfusion REST/STRESS Imaging Protocol The imaging protocol used to acquire images was Rest Tc-99m/stress Tc-99m 1 day Rest Spect myocardial perfusion imaging was performed in supine position 43 minutes following the injection of 12.9 mCi of Tc-99 Myoview. Gated Stress Spect was performed 45 minutes after intravenous 32.6 mCi Tc-99 Myoview injection. The images were gated to evaluate regional wall motion and calculate ventricular ejection fraction.Images were reconstructed using backfilter projection method in short horizontal and verticle long axis. Spect slices were generated. RESTING DATA [id number]/min ESV49.00mlMyocardial Yfns328.00g Av. Heart Rate85.00bpm EF60.00% STRESS DATA JJB746.08ybIG6.30L/min ESV56.00mlMyocardial Jqbl491.00g EF56.00% Regional WT score at stress:2.00 Regional WM score at stress:0.00 Summed WT score at stress:6.00 Av. Heart Rate87.00bpmSummed WM score at stress:14.00 LV Perf. Quant 17 Seg. SSS2.00 17 Seg. SRS12.00 17 Seg. SDS0.00 Stress Defect Extent (% LAD)0.00Rest Defect Extent (% LAD)16.30Rev. Defect Extent (% LAD)0.00 Stress Defect Extent (% LCX)0.00Rest Defect Extent (% LCX)2.50Rev. Defect Extent (% LCX)0.00 Stress Defect Extent (% RCA)0.00Rest Defect Extent (% RCA)33.30Rev. Defect Extent (% RCA)0.00 Stress Defect Extent (% JANNIE)0.00Rest Defect Extent (% JANNIE)21.30Rev. Defect Extent (% JANNIE)0.00 Other Information Quality:Good Left Ventricle LV Function:Left ventricle systolic function is normal. The Ejection Fraction is >55%. Conclusion 1. Small fixed apical defect. No stress induced sichemia. Normal EF
--- NOTE | 2019-02-15 20:32 | CARD ---
APPROVED REPORT Date of service: 02/11/2019 EKG Measurement Heart [id number] <Conclusion> Normal sinus rhythm Minimal voltage criteria for LVH, may be normal variant Junctional ST depression, probably normal Borderline ECG
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
--- NOTE | 2019-03-03 08:18 | CP.PCM.PN ---
Subjective - Date & Time of Evaluation Date of Evaluation: 02/11/19 Time of Evaluation: 08:17 - Subjective Subjective: Patient is still continues to have a chest discomfort, palpitation. Denies any nausea vomiting. Still having some abdominal pain. Having difficult time and go to the bathroom, constipation present. On examination vital signs otherwise stable. Chest good air entry bilaterally regular [place] nontender abdomen no pedal edema I discussed with the polisher apprentice, possible cath or stress test and will follow the patient Objective - Vital Signs/Intake and Output Vital Signs (last 24 hours): Temp Pulse Resp BP Pulse Ox 98.7 F 80 20 128/79 97 02/13/19 15:32 02/13/19 16:00 02/13/19 15:32 02/13/19 15:32 02/13/19 15:32 - Labs Labs: 02/13/19 13:32 02/13/19 13:32 PT 11.5 SECONDS (9.7-12.2) 02/10/19 17:06 INR 1.1 02/10/19 17:06 APTT 36 SECONDS (21-34) H 02/10/19 17:06
== END 2019-02-13 22:06 | disposition home or self-care (01) | DRG 313 ==
LOC: C.ER 16:28 → C.6T 17:56
PROVIDERS: ADMIT Internal Medicine; ATTEND Internal Medicine
DX: R07.89 Other chest pain (principal); I25.10 Atherosclerotic heart disease of native coronary artery without angina pectoris; E78.5 Hyperlipidemia, unspecified; F43.10 Post-traumatic stress disorder, unspecified; G89.29 Other chronic pain; I10 Essential (primary) hypertension; J45.909 Unspecified asthma, uncomplicated; Z87.11 Personal history of peptic ulcer disease; Z87.891 Personal history of nicotine dependence; H40.9 Unspecified glaucoma; F31.9 Bipolar disorder, unspecified; E11.9 Type 2 diabetes mellitus without complications; K59.09 Other constipation; F22 Delusional disorders